=== PATIENT | male | born 1960 ===

== ENCOUNTER 2018-11-02 13:51 | Inpatient (IN) | payer MEDICARE, OTHER ==
[~2018-11-02 13:51] MED LIST: Iodixanol 320 MG/ML 200 ML BOTTLE IV ONE; Lidocaine 2% MPF (5 ml) Inj ONE
--- NOTE | 2018-11-02 13:59 | CP.PCM.PN ---
<Sara Soto - Last Filed: 11/02/18 14:17> Subjective - Date & Time of Evaluation Date of Evaluation: 11/02/18 Time of Evaluation: 13:58 - Subjective Subjective: CODE HEART This is a 58 year old male with PMHx of HTN, HLD, CAD s/p PCI 2009, 1 stent, 2017 - 1 MONTSERRAT in LAD with Dr. Santana, was to have LCx PCI outpatient (unclear if PCI was placed, and a former tobacco user. Patient has arrived from [place] as a CODE Heart, noted on EKG ST elevations V2 - V5. Patient was given ASA, Plavix, Heparin, Nitro, Morphine. Due to level of pain, patient unable to answer questions regarding onset, previous medical history, medication compliance or any recent illicit drug use. All information gained from prior admissions in EMR. Dr. Mai on site to perform cardiac catherization. <Chris Renae - Last Filed: 11/02/18 15:56> Objective - Medications Medications: Current Medications Acetylcysteine (Acetylcysteine 20%) 6 ml PO Q12H [facility] Stop: 11/04/18 04:01 Aspirin (Aspirin Chewable) 81 mg PO DAILY [facility] Clopidogrel Bisulfate (Plavix) 75 mg PO DAILY [facility] Enoxaparin Sodium (Lovenox) 40 mg SC DAILY [facility] Metoprolol Tartrate (Lopressor) 25 mg PO BID [facility] Rosuvastatin Calcium (Crestor) 40 mg PO HS [facility] Attending/Attestation - Attestation I have personally seen and examined this patient.: Yes I have fully participated in the care of the patient.: Yes I have reviewed all pertinent clinical information, including history, physical exam and plan: Yes Notes (Text): 11/02/18 15:53 Hospitalist Note: Reviewed the above and agree with the above note. The patient was brought by BLS to [place] [facility] where a CODE Heart was called and then transported to [facility]. Supposedly he has had history of CT in the past and in 2017 had at least one stent to the LAD. Patient was awake, however in pain. He did not want to answer questions due to pain. He was is visible chest pain when we saw and brought him to the field laboratory operator and we gave 4 of morphine for chest pain. His blood pressure was very elevated in the 180s systolic. Because he was extremely anxious and moving all of his limbs he was also given 1 of versed and fentanyl before the start of the cardiac cath. Chris Renae
[2018-11-02] MEDS ORDERED: Midazolam 2 MG/2 ML VIAL ONE (14:10)
[2018-11-02 14:16] VITALS: BMI 29.7
[2018-11-02] MEDS ORDERED: Amiodarone 150mg/3 ml vial ONE (14:29)
[2018-11-02] MEDS: Sodium Chloride 0.9% 1,000 ML IV SCH (15:45)
[2018-11-02 16:05] LABS: BASO % 0.1 % (0.0-2.0); HEMOGLOBIN 15.5 g/dL (12.0-18.0); LYMPH # 1.2 K/uL (1.0-4.3); LYMPH % 7.3 % (20.0-40.0); MEAN CELL VOLUME 93.8 fL (80.0-94.0); MEAN CORPUSCULAR HEMOGLOBIN 31.3 pg (27.0-31.0); MEAN CORPUSCULAR HGB CONC 33.3 g/dL (33.0-37.0); MEAN PLATELET VOLUME 8.1 fL (7.2-11.7); NEUT # 14.2 K/uL (1.8-7.0); NEUT % 86.6 % (50.0-75.0); PLATELET COUNT 230 K/uL (130-400); RBC 4.96 Mil/uL (4.40-5.90); RED CELL DISTRIBUTION WIDTH 14.2 % (11.5-14.5); WHITE BLOOD COUNT 16.5 K/uL (4.8-10.8)
--- NOTE | 2018-11-02 16:16 | CP.PCM.CON ---
History of Present Illness - History of Present Illness History of Present Illness: 58 year old male with PMHx of HTN, HLD, CAD s/p PCI 2009, 2016, current tobacco user. Patient has arrived from [place] as a CODE Heart, noted on EKG ST elevations V2 - V5. Patient was given ASA, Plavix, Heparin, Nitro, Morphine. Patient underwent MONTSERRAT LAD. denies any chest pain, s/p versed post op. Patient too drowsy, -Patient notes he was off plavix for a endoscopy at [place] (yesterday had endoscopy). Patient was walking his dog when he noted to have chest pain. -utox pending Pmx: gastritis, CAD, smoker Psug hx: PCI multiple allergies: NKDA -SH: (+)smoking Review of Systems - Review of Systems All systems: reviewed and no additional remarkable complaints except Review of Systems: as per HPI Past Patient History - Infectious Disease Hx of Infectious Diseases: None - Tetanus Immunizations Tetanus Immunization: Unknown - Past Medical History & Family History Past Medical History?: Yes - Past Social History Smoking Status: Current Some Days Smoker - CARDIAC Hx Hypercholesterolemia: Yes Hx Hypertension: Yes - PULMONARY Hx Asthma: Yes - NEUROLOGICAL Hx Neurological Disorder: Yes HX Cerebrovascular Accident: Yes - HEENT Hx HEENT Problems: No - RENAL Hx Chronic Kidney Disease: Yes Hx Kidney Stones: Yes - ENDOCRINE/METABOLIC Hx Endocrine Disorders: No - HEMATOLOGICAL/ONCOLOGICAL Hx Blood Disorders: No - INTEGUMENTARY Hx Dermatological Problems: No - MUSCULOSKELETAL/RHEUMATOLOGICAL Hx Arthritis: Yes - GASTROINTESTINAL Hx Gastrointestinal Disorders: Yes Hx Ulcer: Yes - GENITOURINARY/GYNECOLOGICAL Hx Genitourinary Disorders: No - PSYCHIATRIC Hx Anxiety: Yes Hx Depression: Yes - SURGICAL HISTORY Hx Surgeries: Yes Hx Angioplasty: Yes (x2) - ANESTHESIA Hx Anesthesia: Yes Hx Anesthesia Reactions: No Meds Allergies/Adverse Reactions: Allergies Allergy/AdvReac Type Severity Reaction Status Date / Time No Known Allergies Allergy Verified 11/02/18 12:27 - Medications Medications: Current Medications Acetylcysteine (Acetylcysteine 20%) 6 ml PO Q12H [facility] Stop: 11/04/18 04:01 Aspirin (Aspirin Chewable) 81 mg PO DAILY [facility] Clopidogrel Bisulfate (Plavix) 75 mg PO DAILY [facility] Enoxaparin Sodium (Lovenox) 40 mg SC DAILY [facility] Metoprolol Tartrate (Lopressor) 25 mg PO BID [facility] Rosuvastatin Calcium (Crestor) 40 mg PO HS [facility] Physical Exam - Head Exam Head Exam: ATRAUMATIC, NORMAL INSPECTION, NORMOCEPHALIC - Eye Exam Eye Exam: EOMI, Normal appearance - ENT Exam ENT Exam: Mucous Membranes Moist - Respiratory Exam Respiratory Exam: Clear to Auscultation Bilateral, NORMAL BREATHING PATTERN - Cardiovascular Exam Cardiovascular Exam: REGULAR RHYTHM, +S1, +S2 - GI/Abdominal Exam GI & Abdominal Exam: Normal Bowel Sounds, Soft. absent: Rebound, Tenderness - Extremities Exam Extremities exam: Positive for: normal inspection - Neurological Exam Neurological exam: Altered - Skin Skin Exam: Normal Color, Warm Results - Vital Signs Recent Vital Signs: Last Vital Signs Temp 97.4 F L 11/02/18 15:05 Pulse 77 11/02/18 16:02 Resp 12 11/02/18 16:02 BP 111/81 11/02/18 16:02 Pulse Ox 94 L 11/02/18 16:02 - Labs Result Diagrams: 11/02/18 16:01 11/02/18 16:01 Labs: Laboratory Results - last 24 hr 11/02/18 16:01 WBC 16.5 H RBC 4.96 Hgb 15.5 Hct 46.5 MCV 93.8 MCH 31.3 H MCHC 33.3 RDW 14.2 Plt Count 230 MPV 8.1 Neut % (Auto) 86.6 H Lymph % (Auto) 7.3 L Swisher % (Auto) 6.0 Eos % (Auto) 0.0 Baso % (Auto) 0.1 Neut # (Auto) 14.2 H Lymph # (Auto) 1.2 Swisher # (Auto) 1.0 H Eos # (Auto) 0.0 Baso # (Auto) 0.0 Assessment & Plan - Assessment and Plan (Free Text) Assessment: STEMI: LAD terirtory, s/p MONTSERRAT, obtain P2Y12, d/w Dr. hernandez, requested to continue plavix (posisble change to brillinta), continue to monitor EKG, trop and continue DAPT -h/o gastritis: continue to monitor, obtain endoscopy report (patient drowys and not able to provide any history of report or medical list), continue pepcid + maalox, carafate -CKD stage II: start oral mucomyst, continue IV fluid, avoid nephrotoxic drugs -Leukocytosis: CXR c/w infiltrates: will la cultuer, start abx, doxy + zosyn (possible aspiration during endoscopy), hold vanco in light of renal failure(plus IV contract use in cardiac cath) -dvt ppx heparin sq/SCD -pud ppx pepcid urine drug test pending -multiple diagnostic tests pending -nausea/vomitting: resolved with oral viscous lidocaine and maalox, will start to pepcid (protonix interaction with plavix) -continue to monitor closely in ICU. - Date & Time Date: 11/02/18 Time: 16:17
[2018-11-02 16:17] LABS: ALB/GLOB RATIO 1.4 (1.0-2.1); ALBUMIN 4.2 g/dL (3.5-5.0)
[2018-11-02 16:35] LABS: TROPONIN I 0.934 ng/mL (0.00-0.120)
[2018-11-02 16:41] LABS: BANDS 2 % (0-2); LYMPHOCYTE 8 % (20-40); MONOCYTE 6 % (0-10); NEUTROPHIL 84 % (50-75); PLATELET ESTIMATE NORMAL (NORMAL); TOTAL CELLS COUNTED 100
[2018-11-02 16:42] LABS: ANISOCYTOSIS SLIGHT; LARGE PLATELETS PRESENT; TOXIC GRANULATION PRESENT
--- NOTE | 2018-11-02 17:10 | RAD ---
HISTORY: post cath COMPARISON: None available. TECHNIQUE: Chest, one view. FINDINGS: Examination limited by habitus. LUNGS: Mild venous congestion. Bibasilar atelectasis/infiltrates. Please note that chest x-ray has limited sensitivity for the detection of pulmonary masses. PLEURA: No significant pleural effusion identified. No definite pneumothorax . CARDIOVASCULAR: Cardiomegaly. Atherosclerotic calcifications. OSSEOUS STRUCTURES: Degenerative changes. VISUALIZED UPPER ABDOMEN: Unremarkable. OTHER FINDINGS: None. IMPRESSION: Cardiomegaly. Mild venous congestion. Bibasilar atelectasis/infiltrates.
[2018-11-02 18:03] LABS: ABG ALLEN TEST POS; ARTERIAL BLOOD GAS HCO3 20.1 mmol/L (21-28); ARTERIAL BLOOD GAS O2 SAT 96.7 % (95-98); ARTERIAL BLOOD GAS PCO2 35 mm/Hg (35-45); ARTERIAL BLOOD GAS PH 7.34 (7.35-7.45); ARTERIAL BLOOD GAS PO2 80 mm/Hg (80-100)
[2018-11-02] MEDS ORDERED: Aluminum Hydroxide/Magnesium Hydroxide Susp (30 mL) PO ONE (18:12)
[2018-11-02 19:03] LABS: BARBITURATES, UR NEGATIVE (NEGATIVE); PHENCYCLIDINE, UR NEGATIVE (NEGATIVE)
[2018-11-02 19:08] LABS: BARBITURATES, UR NEGATIVE (NEGATIVE); BENZODIAZEPINES, UR POSITIVE (NEGATIVE); OPIATES, UR POSITIVE (NEGATIVE); PHENCYCLIDINE, UR NEGATIVE (NEGATIVE)
[2018-11-02 19:25] LABS: AMYLASE 77 U/L (30-110); LIPASE 293 U/L (23-300)
[2018-11-02] MEDS: Piperacillin/Tazobact 3.375 GM in Sodium Chloride 100 ML IVPB SCH (19:48)
--- NOTE | 2018-11-02 23:27 | CP.PCM.HP ---
Past Patient History - Infectious Disease Hx of Infectious Diseases: None - Tetanus Immunizations Tetanus Immunization: Unknown - Past Medical History & Family History Past Medical History?: Yes - Past Social History Smoking Status: Current Some Days Smoker - CARDIAC Hx Hypercholesterolemia: Yes Hx Hypertension: Yes - PULMONARY Hx Asthma: Yes - NEUROLOGICAL Hx Neurological Disorder: Yes HX Cerebrovascular Accident: Yes - HEENT Hx HEENT Problems: No - RENAL Hx Chronic Kidney Disease: Yes Hx Kidney Stones: Yes - ENDOCRINE/METABOLIC Hx Endocrine Disorders: No - HEMATOLOGICAL/ONCOLOGICAL Hx Blood Disorders: No - INTEGUMENTARY Hx Dermatological Problems: No - MUSCULOSKELETAL/RHEUMATOLOGICAL Hx Arthritis: Yes - GASTROINTESTINAL Hx Gastrointestinal Disorders: Yes Hx Ulcer: Yes - GENITOURINARY/GYNECOLOGICAL Hx Genitourinary Disorders: No - PSYCHIATRIC Hx Anxiety: Yes Hx Depression: Yes - SURGICAL HISTORY Hx Surgeries: Yes Hx Angioplasty: Yes (x2) - ANESTHESIA Hx Anesthesia: Yes Hx Anesthesia Reactions: No Meds Allergies/Adverse Reactions: Allergies Allergy/AdvReac Type Severity Reaction Status Date / Time No Known Allergies Allergy Verified 11/02/18 12:27 Physical Exam - Constitutional Appears: Well - Head Exam Head Exam: ATRAUMATIC, NORMAL INSPECTION, NORMOCEPHALIC - Eye Exam Eye Exam: EOMI, Normal appearance, PERRL Pupil Exam: NORMAL ACCOMODATION, PERRL - ENT Exam ENT Exam: Mucous Membranes Moist, Normal Exam - Neck Exam Neck exam: Positive for: Normal Inspection - Respiratory Exam Respiratory Exam: Decreased Breath Sounds - Cardiovascular Exam Cardiovascular Exam: REGULAR RHYTHM, +S1, +S2 - GI/Abdominal Exam GI & Abdominal Exam: Diminished Bowel Sounds, Soft - Rectal Exam Rectal Exam: Deferred - Neurological Exam Neurological exam: Oriented x3 Results - Vital Signs Recent Vital Signs: Last Vital Signs Temp 97.8 F 11/02/18 20:00 Pulse 92 H 11/02/18 22:45 Resp 13 11/02/18 22:45 BP 134/94 H 11/02/18 22:00 Pulse Ox 95 11/02/18 22:45 - Labs Result Diagrams: 11/02/18 16:01 11/02/18 16:01 Labs: Laboratory Results - last 24 hr 11/02/18 11/02/18 11/02/18 16:01 16:01 17:50 WBC 16.5 H RBC 4.96 Hgb 15.5 Hct 46.5 MCV 93.8 MCH 31.3 H MCHC 33.3 RDW 14.2 Plt Count 230 MPV 8.1 Neut % (Auto) 86.6 H Lymph % (Auto) 7.3 L Jerome % (Auto) 6.0 Eos % (Auto) 0.0 Baso % (Auto) 0.1 Neut # (Auto) 14.2 H Lymph # (Auto) 1.2 Jerome # (Auto) 1.0 H Eos # (Auto) 0.0 Baso # (Auto) 0.0 Neutrophils % (Manual) 84 H Band Neutrophils % 2 Lymphocytes % (Manual) 8 L Monocytes % (Manual) 6 Toxic Granulation Present Platelet Estimate Normal Large Platelets Present Anisocytosis (manual) Slight Puncture Site Rradial pCO2 35 pO2 80 HCO3 20.1 L ABG pH 7.34 L ABG Total CO2 20.0 L ABG O2 Saturation 96.7 ABG Base Excess -6.1 L Herman Test Pos ABG Potassium 4.4 A-a O2 Difference 76.0 Respiratory Index 1.0 Glucose 159 H Lactate 1.5 Liter Flow 2.0 FiO2 28.0 Sodium 138 136.0 Potassium 4.4 Chloride 102 106.0 Carbon Dioxide 20 L Anion Gap 21 H BUN 34 H Creatinine 1.6 H Est GFR ( Amer) 54 Est GFR (Non-Af Amer) 45 Random Glucose 138 H Lactic Acid Calcium 9.0 Phosphorus 2.2 L Magnesium 1.7 Total Bilirubin 0.7 AST 75 H D ALT 40 Alkaline Phosphatase 61 Troponin I 0.9340 H* Total Protein 7.3 Albumin 4.2 Globulin 3.1 Albumin/Globulin Ratio 1.4 Amylase Lipase Arterial Blood Potassium 4.4 Urine Opiates Screen Urine Methadone Screen Ur Barbiturates Screen Ur Phencyclidine Scrn Ur Amphetamines Screen U Benzodiazepines Scrn U Oth Cocaine Metabols U Cannabinoids Screen 11/02/18 11/02/18 11/02/18 18:41 18:41 19:17 WBC RBC Hgb Hct MCV MCH MCHC RDW Plt Count MPV Neut % (Auto) Lymph % (Auto) Jerome % (Auto) Eos % (Auto) Baso % (Auto) Neut # (Auto) Lymph # (Auto) Jerome # (Auto) Eos # (Auto) Baso # (Auto) Neutrophils % (Manual) Band Neutrophils % Lymphocytes % (Manual) Monocytes % (Manual) Toxic Granulation Platelet Estimate Large Platelets Anisocytosis (manual) Puncture Site pCO2 pO2 HCO3 ABG pH ABG Total CO2 ABG O2 Saturation ABG Base Excess Herman Test ABG Potassium A-a O2 Difference Respiratory Index Glucose Lactate Liter Flow FiO2 Sodium Potassium Chloride Carbon Dioxide Anion Gap BUN Creatinine Est GFR ( Amer) Est GFR (Non-Af Amer) Random Glucose Lactic Acid Calcium Phosphorus Magnesium Total Bilirubin AST ALT Alkaline Phosphatase Troponin I Total Protein Albumin Globulin Albumin/Globulin Ratio Amylase 77 Lipase 293 Arterial Blood Potassium Urine Opiates Screen Positive H Positive H Urine Methadone Screen Negative Negative Ur Barbiturates Screen Negative Negative Ur Phencyclidine Scrn Negative Negative Ur Amphetamines Screen Negative Negative U Benzodiazepines Scrn Positive Positive U Oth Cocaine Metabols Negative Negative U Cannabinoids Screen Positive H Positive H 11/02/18 11/02/18 22:49 22:49 WBC RBC Hgb Hct MCV MCH MCHC RDW Plt Count MPV Neut % (Auto) Lymph % (Auto) Jerome % (Auto) Eos % (Auto) Baso % (Auto) Neut # (Auto) Lymph # (Auto) Jerome # (Auto) Eos # (Auto) Baso # (Auto) Neutrophils % (Manual) Band Neutrophils % Lymphocytes % (Manual) Monocytes % (Manual) Toxic Granulation Platelet Estimate Large Platelets Anisocytosis (manual) Puncture Site pCO2 pO2 HCO3 ABG pH ABG Total CO2 ABG O2 Saturation ABG Base Excess Herman Test ABG Potassium A-a O2 Difference Respiratory Index Glucose Lactate Liter Flow FiO2 Sodium Potassium Chloride Carbon Dioxide Anion Gap BUN Creatinine Est GFR ( Amer) Est GFR (Non-Af Amer) Random Glucose Lactic Acid 2.1 Calcium Phosphorus Magnesium Total Bilirubin AST ALT Alkaline Phosphatase Troponin I 57.8000 H* Total Protein Albumin Globulin Albumin/Globulin Ratio Amylase Lipase Arterial Blood Potassium Urine Opiates Screen Urine Methadone Screen Ur Barbiturates Screen Ur Phencyclidine Scrn Ur Amphetamines Screen U Benzodiazepines Scrn U Oth Cocaine Metabols U Cannabinoids Screen
[2018-11-03] MEDS: Nitroglycerin 50mg in D5W 50 MG/250 ML BOTTLE IV SCH (02:10)
[2018-11-03] MEDS: Piperacillin/Tazobact 3.375 GM in Sodium Chloride 100 ML IVPB SCH ×3 (02:26→18:00)
[2018-11-03] MEDS: Acetylcysteine 20% Inhal Soln (4ml) PO SCH ×4 (04:36→19:12)
[2018-11-03 06:19] LABS: BASO # 0.1 K/uL (0.0-0.2); BASO % 0.4 % (0.0-2.0); HEMOGLOBIN 14.7 g/dL (12.0-18.0); LYMPH # 1.3 K/uL (1.0-4.3); LYMPH % 7.4 % (20.0-40.0); MEAN CELL VOLUME 93.3 fL (80.0-94.0); MEAN CORPUSCULAR HGB CONC 33.3 g/dL (33.0-37.0); MONO # 1.3 K/uL (0.0-0.8); MONO % 7.3 % (0.0-10.0); NEUT # 14.5 K/uL (1.8-7.0); NEUT % 84.9 % (50.0-75.0); PLATELET COUNT 229 K/uL (130-400); RBC 4.74 Mil/uL (4.40-5.90); RED CELL DISTRIBUTION WIDTH 14.1 % (11.5-14.5); WHITE BLOOD COUNT 17.2 K/uL (4.8-10.8)
[2018-11-03 06:30] LABS: ALB/GLOB RATIO 1.3 (1.0-2.1); ALBUMIN 4.3 g/dL (3.5-5.0)
[2018-11-03 06:44] LABS: TROPONIN I 57.5 ng/mL (0.00-0.120)
[2018-11-03] MEDS ORDERED: Alum-Mag Hydrox-Simethicone Susp (30 mL) PO PRN (08:31)
--- NOTE | 2018-11-03 08:40 | CP.PCM.PN ---
Subjective - Date & Time of Evaluation Date of Evaluation: 11/03/18 Time of Evaluation: 08:34 - Subjective Subjective: Patient continues to have episodes of vomitting, Utox (+)cannabis, trop high >50, over night started on IV nitro Objective - Vital Signs/Intake and Output Vital Signs (last 24 hours): Temp Pulse Resp BP Pulse Ox 97.9 F 99 H 12 139/95 H 97 11/03/18 04:00 11/03/18 06:08 11/03/18 06:08 11/03/18 06:08 11/03/18 06:08 Intake and Output: 11/03/18 11/03/18 06:59 18:59 Intake Total 1087.0 Output Total 900 Balance 187.0 - Medications Medications: Current Medications Acetylcysteine (Acetylcysteine 20%) 6 ml PO Q12H [facility] Stop: 11/04/18 04:01 Last Admin: 11/03/18 05:11 Dose: 6 ml Al Hydrox/Mg Hydrox/Simethicone (Maalox Plus 30 Ml) 30 ml PO Q6H PRN PRN Reason: Indigestion / Heartburn Aspirin (Aspirin Chewable) 81 mg PO DAILY [facility] Clopidogrel Bisulfate (Plavix) 75 mg PO DAILY [facility] Enoxaparin Sodium (Lovenox) 40 mg SC DAILY [facility] Sodium Chloride (Sodium Chloride 0.9%) 1,000 mls @ 50 mls/hr IV .Q20H [facility] Last Admin: 11/02/18 15:45 Dose: 50 mls/hr Piperacillin Sod/Tazobactam (Sod 3.375 gm/ Sodium Chloride) 100 mls @ 200 mls/hr IVPB Q8H [facility]; Protocol Last Admin: 11/03/18 02:26 Dose: 200 mls/hr Doxycycline Hyclate 100 mg/ (Sodium Chloride) 100 mls @ 100 mls/hr IVPB Q12H [facility]; Protocol Last Admin: 11/03/18 06:27 Dose: 100 mls/hr Nitroglycerin/Dextrose (Nitroglycerin 50 Mg/250 Ml D5w) 50 mg in 250 mls @ 1.5 mls/hr IV .Q24H [facility]; Protocol Last Titration: 11/03/18 05:00 Dose: 10 mcg/min, 3 mls/hr Metoprolol Tartrate (Lopressor) 25 mg PO BID [facility] Last Admin: 11/02/18 20:52 Dose: Not Given Ondansetron HCl (Zofran Inj) 4 mg IVP Q6H PRN PRN Reason: Nausea/Vomiting Last Admin: 11/02/18 22:55 Dose: 4 mg Rosuvastatin Calcium (Crestor) 40 mg PO HS [facility] Last Admin: 11/02/18 21:58 Dose: 40 mg - Labs Labs: 11/03/18 06:10 11/03/18 06:10 - Head Exam Head Exam: ATRAUMATIC, NORMAL INSPECTION, NORMOCEPHALIC - Eye Exam Eye Exam: EOMI Pupil Exam: PERRL - ENT Exam ENT Exam: Mucous Membranes Moist - Respiratory Exam Respiratory Exam: Clear to Ausculation Bilateral, NORMAL BREATHING PATTERN. absent: Rales, Rhonchi, Wheezes, Respiratory Distress, Stridor - Cardiovascular Exam Cardiovascular Exam: REGULAR RHYTHM, +S1, +S2 - GI/Abdominal Exam GI & Abdominal Exam: Soft, Normal Bowel Sounds. absent: Tenderness, Hypoactive Bowel Sounds - Back Exam Back Exam: NORMAL INSPECTION - Neurological Exam Neurological Exam: Alert, Awake, Oriented x3 - Skin Skin Exam: Normal Color, Warm Assessment and Plan - Assessment and Plan (Free Text) Assessment: -STEMI: LAD terirtory, s/p MONTSERRAT, pending P2Y12, continue DAPT asa + plavix, continue to monitor EKG, trop and continue DAPT -h/o gastritis: continue to monitor, obtain endoscopy report, continue pepcid + maalox, carafate -nausea vomitting: suspect cannabis hyperemesis syndrome: supportive therapy -CKD stage II: continue oral mucomyst, continue IV fluid, avoid nephrotoxic drugs -Leukocytosis: continue ABX, lactic normal -dvt ppx heparin sq/SCD -pud ppx pepcid Utox (+): opiates and cannbinoid -continue to monitor Patient remains hemodynamically stable
[2018-11-03 08:54] LABS: ANISOCYTOSIS SLIGHT; BANDS 1 % (0-2); LYMPHOCYTE 6 % (20-40); MONOCYTE 6 % (0-10); NEUTROPHIL 87 % (50-75); PLATELET ESTIMATE NORMAL (NORMAL); TOTAL CELLS COUNTED 100
[2018-11-03 08:55] LABS: LARGE PLATELETS PRESENT
--- NOTE | 2018-11-03 09:03 | CARDCATH ---
PROCEDURE DATE: 11/02/2018 INDICATIONS: Mr. Garcia is a 58-year-old male who presented to [facility] with complaint of chest pain, one hour prior to presentation. The patient had ST elevation in the inferior leads . He had prior history of stent in the LAD and stent done by Dr. Reddy Santana in 2017. The patient was transferred over emergently from [place] to [facility] due to having excruciating chest pains. PROCEDURE PERFORMED: Left heart catheterization. Selective left and right coronary angiogram. PTCA stenting of proximal LAD 100% atrial lead thrombosed stent with back at the proximal edge of the stent. It was a 3.5 x 15 mm drug-eluting stent in the proximal LAD and a 2.5 x 15 mm drug-eluting stent in the mid LAD. High-grade stenosis lesion reduction of 100% on 0% OBIE-3 flow. History of right femoral access . ANGIOGRAPHIC FINDINGS: Left main, large-sized vessel, bifurcates into left anterior descending and left circumflex coronary artery. Left circumflex is a large-sized vessel, has proximal inside the obtuse marginal branch with mild non-luminal irregularities. The LAD 100% occlusion with OBIE-3 flow, RCA also had a mid nonobstructive 55% stenosis, right dominant circulation, left ventricular ejection fraction was about 40% with anteroseptal hypokinesis noted. ____ intervention performed, XB 3.5 guiding catheter was used to engage the left coronary system. A Whisper wire was used across the occluded thrombosed stent, 2-0 balloon was used to pre-dilatation which restored the LAD system. The segment of the LAD, proximal to the prior stent had ruptured plaque and in it there was some in-stent restenosis noted and the mid segment had a high-grade 95% stenosis. The proximal segment was fitted with a 3.5 x 15 Jhonny drug-eluting stent. The mid in-stent restenosis was treated with balloon angioplasty and the mid LAD lesion stenosis was treated with a 2.5 x 15 mm Jhonny drug-eluting stent. Final angiogram does show lesion reduction down to 0% OBIE-3 flow. IMPRESSION: 1. Successful angioplasty and stenting of 100% thrombosed left anterior descending stent with drug-eluting stent. 2. Mild left ventricular systolic dysfunction. 3. Mildly elevated . RECOMMENDATIONS: 1. The patient is to be monitored in the ICU for 24 hours. 2. Keep the patient on aspirin and Plavix for 1 year. 3. Guideline-directed therapy for CAD including beta-blockers, ANEESH inhibitors, statins. 4. Monitor the functions closely. Ramirez Mai MD
[2018-11-03] MEDS: Enoxaparin 40 mg Syringe SC SCH (09:50)
--- NOTE | 2018-11-03 11:15 | CP.PCM.PN ---
Subjective - Date & Time of Evaluation Date of Evaluation: 11/03/18 - Subjective Subjective: no c/o vomiting, no diarrhea, no fever Objective - Vital Signs/Intake and Output Vital Signs (last 24 hours): Temp Pulse Resp BP Pulse Ox 98 F 97 H 11 L 134/93 H 98 11/03/18 08:00 11/03/18 10:08 11/03/18 10:08 11/03/18 10:08 11/03/18 10:08 Intake and Output: 11/03/18 11/03/18 06:59 18:59 Intake Total 1087.0 392 Output Total 900 200 Balance 187.0 192 - Medications Medications: Current Medications Acetylcysteine (Acetylcysteine 20%) 6 ml PO Q12H [facility] Stop: 11/04/18 04:01 Last Admin: 11/03/18 05:11 Dose: 6 ml Al Hydrox/Mg Hydrox/Simethicone (Maalox Plus 30 Ml) 30 ml PO Q6H PRN PRN Reason: Indigestion / Heartburn Last Admin: 11/03/18 08:58 Dose: 30 ml Aspirin (Aspirin Chewable) 81 mg PO DAILY [facility] Last Admin: 11/03/18 09:50 Dose: 81 mg Clopidogrel Bisulfate (Plavix) 75 mg PO DAILY [facility] Last Admin: 11/03/18 09:50 Dose: 75 mg Enoxaparin Sodium (Lovenox) 40 mg SC DAILY [facility] Last Admin: 11/03/18 09:50 Dose: 40 mg Sodium Chloride (Sodium Chloride 0.9%) 1,000 mls @ 50 mls/hr IV .Q20H [facility] Last Admin: 11/02/18 15:45 Dose: 50 mls/hr Piperacillin Sod/Tazobactam (Sod 3.375 gm/ Sodium Chloride) 100 mls @ 200 mls/hr IVPB Q8H [facility]; Protocol Last Admin: 11/03/18 02:26 Dose: 200 mls/hr Doxycycline Hyclate 100 mg/ (Sodium Chloride) 100 mls @ 100 mls/hr IVPB Q12H [facility]; Protocol Last Admin: 11/03/18 06:27 Dose: 100 mls/hr Nitroglycerin/Dextrose (Nitroglycerin 50 Mg/250 Ml D5w) 50 mg in 250 mls @ 1.5 mls/hr IV .Q24H [facility]; Protocol Last Titration: 11/03/18 05:00 Dose: 10 mcg/min, 3 mls/hr Metoprolol Tartrate (Lopressor) 25 mg PO BID [facility] Last Admin: 11/03/18 09:50 Dose: 25 mg Ondansetron HCl (Zofran Inj) 4 mg IVP Q6H PRN PRN Reason: Nausea/Vomiting Last Admin: 11/02/18 22:55 Dose: 4 mg Rosuvastatin Calcium (Crestor) 40 mg PO HS [facility] Last Admin: 11/02/18 21:58 Dose: 40 mg - Labs Labs: 11/03/18 06:10 11/03/18 06:10 - Constitutional Appears: Well - Head Exam Head Exam: ATRAUMATIC, NORMAL INSPECTION, NORMOCEPHALIC - Eye Exam Eye Exam: EOMI, Normal appearance, PERRL Pupil Exam: NORMAL ACCOMODATION, PERRL - ENT Exam ENT Exam: Mucous Membranes Moist, Normal Exam - Neck Exam Neck Exam: Full ROM, Normal Inspection. absent: Lymphadenopathy - Respiratory Exam Respiratory Exam: Decreased Breath Sounds - Cardiovascular Exam Cardiovascular Exam: REGULAR RHYTHM, +S1, +S2 - GI/Abdominal Exam GI & Abdominal Exam: Soft, Diminished Bowel Sounds - Rectal Exam Rectal Exam: Deferred - Neurological Exam Neurological Exam: Oriented x3 Assessment and Plan (1) Chest pain Status: Acute (2) Coronary artery disease Status: Acute (3) Gastritis Status: Acute (4) Hyperlipidemia Status: Acute (5) Hypertension Status: Acute (6) NSTEMI (non-ST elevated myocardial infarction) Status: Acute (7) STEMI (ST elevation myocardial infarction) Status: Acute - Assessment and Plan (Free Text) Plan: WBC 17.2 BUN 33 Creatinine 1.6 Glucose 150 acetylcysteine MiraLAX Aspirin Plavix Lovenox Piperacillin Doxycycline Nitroglycerin Lopressor Zofran Crestor Moderate to high complexity of care. Plan of care discussed with patient &/or family & staff. Medications reviewed and reconciled. Labs reviewed. Vitals reviewed
[2018-11-03] MEDS: Sodium Chloride 0.9% 1,000 ML IV SCH (17:09)
--- NOTE | 2018-11-03 18:25 | CP.PCM.CON ---
History of Present Illness - History of Present Illness History of Present Illness: dictated Past Patient History - Infectious Disease Hx of Infectious Diseases: None - Tetanus Immunizations Tetanus Immunization: Unknown - Past Medical History & Family History Past Medical History?: Yes - Past Social History Smoking Status: Current Some Days Smoker - CARDIAC Hx Hypercholesterolemia: Yes Hx Hypertension: Yes - PULMONARY Hx Asthma: Yes - NEUROLOGICAL Hx Neurological Disorder: Yes HX Cerebrovascular Accident: Yes - HEENT Hx HEENT Problems: No - RENAL Hx Chronic Kidney Disease: Yes Hx Kidney Stones: Yes - ENDOCRINE/METABOLIC Hx Endocrine Disorders: No - HEMATOLOGICAL/ONCOLOGICAL Hx Blood Disorders: No - INTEGUMENTARY Hx Dermatological Problems: No - MUSCULOSKELETAL/RHEUMATOLOGICAL Hx Arthritis: Yes - GASTROINTESTINAL Hx Gastrointestinal Disorders: Yes Hx Ulcer: Yes - GENITOURINARY/GYNECOLOGICAL Hx Genitourinary Disorders: No - PSYCHIATRIC Hx Anxiety: Yes Hx Depression: Yes - SURGICAL HISTORY Hx Surgeries: Yes Hx Angioplasty: Yes (x2) - ANESTHESIA Hx Anesthesia: Yes Hx Anesthesia Reactions: No Meds Allergies/Adverse Reactions: Allergies Allergy/AdvReac Type Severity Reaction Status Date / Time No Known Allergies Allergy Verified 11/02/18 12:27 - Medications Medications: Current Medications Acetylcysteine (Acetylcysteine 20%) 6 ml PO Q12H [facility] Stop: 11/04/18 04:01 Last Admin: 11/03/18 05:11 Dose: 6 ml Al Hydrox/Mg Hydrox/Simethicone (Maalox Plus 30 Ml) 30 ml PO Q6H PRN PRN Reason: Indigestion / Heartburn Last Admin: 11/03/18 08:58 Dose: 30 ml Aspirin (Aspirin Chewable) 81 mg PO DAILY [facility] Last Admin: 11/03/18 09:50 Dose: 81 mg Clopidogrel Bisulfate (Plavix) 75 mg PO DAILY [facility] Last Admin: 11/03/18 09:50 Dose: 75 mg Enoxaparin Sodium (Lovenox) 40 mg SC DAILY [facility] Last Admin: 11/03/18 09:50 Dose: 40 mg Sodium Chloride (Sodium Chloride 0.9%) 1,000 mls @ 50 mls/hr IV .Q20H [facility] Last Admin: 11/03/18 17:09 Dose: Not Given Piperacillin Sod/Tazobactam (Sod 3.375 gm/ Sodium Chloride) 100 mls @ 200 mls/hr IVPB Q8H [facility]; Protocol Last Admin: 11/03/18 11:29 Dose: 200 mls/hr Doxycycline Hyclate 100 mg/ (Sodium Chloride) 100 mls @ 100 mls/hr IVPB Q12H [facility]; Protocol Last Admin: 11/03/18 06:27 Dose: 100 mls/hr Nitroglycerin/Dextrose (Nitroglycerin 50 Mg/250 Ml D5w) 50 mg in 250 mls @ 1.5 mls/hr IV .Q24H [facility]; Protocol Last Titration: 11/03/18 05:00 Dose: 10 mcg/min, 3 mls/hr Metoprolol Tartrate (Lopressor) 25 mg PO BID [facility] Last Admin: 11/03/18 17:09 Dose: 25 mg Ondansetron HCl (Zofran Inj) 4 mg IVP Q6H PRN PRN Reason: Nausea/Vomiting Last Admin: 11/02/18 22:55 Dose: 4 mg Rosuvastatin Calcium (Crestor) 40 mg PO HS [facility] Last Admin: 11/02/18 21:58 Dose: 40 mg Results - Vital Signs Recent Vital Signs: Last Vital Signs Temp 98.6 F 11/03/18 16:00 Pulse 86 11/03/18 17:08 Resp 14 11/03/18 17:08 BP 129/86 11/03/18 17:09 Pulse Ox 98 11/03/18 17:08 - Labs Result Diagrams: 11/03/18 06:10 11/03/18 06:10 Labs: Laboratory Results - last 24 hr 11/02/18 11/02/18 11/02/18 18:41 18:41 19:17 WBC RBC Hgb Hct MCV MCH MCHC RDW Plt Count MPV Neut % (Auto) Lymph % (Auto) [place] % (Auto) Eos % (Auto) Baso % (Auto) Neut # (Auto) Lymph # (Auto) [place] # (Auto) Eos # (Auto) Baso # (Auto) Neutrophils % (Manual) Band Neutrophils % Lymphocytes % (Manual) Monocytes % (Manual) Platelet Estimate Large Platelets Anisocytosis (manual) Plt P2Y12 React Units Sodium Potassium Chloride Carbon Dioxide Anion Gap BUN Creatinine Est GFR ( Amer) Est GFR (Non-Af Amer) Random Glucose Lactic Acid Calcium Phosphorus Magnesium Total Bilirubin AST ALT Alkaline Phosphatase Troponin I Total Protein Albumin Globulin Albumin/Globulin Ratio Amylase 77 Lipase 293 Urine Opiates Screen Positive H Positive H Urine Methadone Screen Negative Negative Ur Barbiturates Screen Negative Negative Ur Phencyclidine Scrn Negative Negative Ur Amphetamines Screen Negative Negative U Benzodiazepines Scrn Positive Positive U Oth Cocaine Metabols Negative Negative U Cannabinoids Screen Positive H Positive H 11/02/18 11/02/18 11/03/18 22:49 22:49 06:10 WBC 17.2 H RBC 4.74 Hgb 14.7 Hct 44.2 MCV 93.3 MCH 31.0 MCHC 33.3 RDW 14.1 Plt Count 229 MPV 8.0 Neut % (Auto) 84.9 H Lymph % (Auto) 7.4 L [place] % (Auto) 7.3 Eos % (Auto) 0.0 Baso % (Auto) 0.4 Neut # (Auto) 14.5 H Lymph # (Auto) 1.3 [place] # (Auto) 1.3 H Eos # (Auto) 0.0 Baso # (Auto) 0.1 Neutrophils % (Manual) 87 H Band Neutrophils % 1 Lymphocytes % (Manual) 6 L Monocytes % (Manual) 6 Platelet Estimate Normal Large Platelets Present Anisocytosis (manual) Slight Plt P2Y12 React Units Sodium Potassium Chloride Carbon Dioxide Anion Gap BUN Creatinine Est GFR ( Amer) Est GFR (Non-Af Amer) Random Glucose Lactic Acid 2.1 Calcium Phosphorus Magnesium Total Bilirubin AST ALT Alkaline Phosphatase Troponin I 57.8000 H* Total Protein Albumin Globulin Albumin/Globulin Ratio Amylase Lipase Urine Opiates Screen Urine Methadone Screen Ur Barbiturates Screen Ur Phencyclidine Scrn Ur Amphetamines Screen U Benzodiazepines Scrn U Oth Cocaine Metabols U Cannabinoids Screen 11/03/18 11/03/18 11/03/18 06:10 06:10 08:35 WBC RBC Hgb Hct MCV MCH MCHC RDW Plt Count MPV Neut % (Auto) Lymph % (Auto) [place] % (Auto) Eos % (Auto) Baso % (Auto) Neut # (Auto) Lymph # (Auto) [place] # (Auto) Eos # (Auto) Baso # (Auto) Neutrophils % (Manual) Band Neutrophils % Lymphocytes % (Manual) Monocytes % (Manual) Platelet Estimate Large Platelets Anisocytosis (manual) Plt P2Y12 React Units 211 Sodium 136 Potassium 4.5 Chloride 107 Carbon Dioxide 20 L Anion Gap 14 BUN 33 H Creatinine 1.6 H Est GFR ( Amer) 54 Est GFR (Non-Af Amer) 45 Random Glucose 150 H Lactic Acid Calcium 9.0 Phosphorus 3.4 Magnesium 1.9 Total Bilirubin 1.0 AST 308 H D ALT 51 Alkaline Phosphatase 49 Troponin I 57.5000 H* Total Protein 7.5 Albumin 4.3 Globulin 3.2 Albumin/Globulin Ratio 1.3 Amylase 94 Lipase 49 Urine Opiates Screen Urine Methadone Screen Ur Barbiturates Screen Ur Phencyclidine Scrn Ur Amphetamines Screen U Benzodiazepines Scrn U Oth Cocaine Metabols U Cannabinoids Screen 11/03/18 09:35 WBC RBC Hgb Hct MCV MCH MCHC RDW Plt Count MPV Neut % (Auto) Lymph % (Auto) [place] % (Auto) Eos % (Auto) Baso % (Auto) Neut # (Auto) Lymph # (Auto) [place] # (Auto) Eos # (Auto) Baso # (Auto) Neutrophils % (Manual) Band Neutrophils % Lymphocytes % (Manual) Monocytes % (Manual) Platelet Estimate Large Platelets Anisocytosis (manual) Plt P2Y12 React Units Sodium Potassium Chloride Carbon Dioxide Anion Gap BUN Creatinine Est GFR ( Amer) Est GFR (Non-Af Amer) Random Glucose Lactic Acid 1.1 Calcium Phosphorus Magnesium Total Bilirubin AST ALT Alkaline Phosphatase Troponin I Total Protein Albumin Globulin Albumin/Globulin Ratio Amylase Lipase Urine Opiates Screen Urine Methadone Screen Ur Barbiturates Screen Ur Phencyclidine Scrn Ur Amphetamines Screen U Benzodiazepines Scrn U Oth Cocaine Metabols U Cannabinoids Screen
[2018-11-04] MEDS: Nitroglycerin 50mg in D5W 50 MG/250 ML BOTTLE IV SCH (02:00)
[2018-11-04] MEDS: Piperacillin/Tazobact 3.375 GM in Sodium Chloride 100 ML IVPB SCH ×3 (02:32→18:05)
[2018-11-04] MEDS: Acetylcysteine 20% Inhal Soln (4ml) PO SCH (04:00)
[2018-11-04 06:27] LABS: BASO % 0.3 % (0.0-2.0); EOS % 0.1 % (0.0-4.0); HEMOGLOBIN 13.8 g/dL (12.0-18.0); LYMPH # 1.8 K/uL (1.0-4.3); LYMPH % 14.5 % (20.0-40.0); MEAN CELL VOLUME 93.4 fL (80.0-94.0); MEAN CORPUSCULAR HEMOGLOBIN 31.2 pg (27.0-31.0); MEAN CORPUSCULAR HGB CONC 33.4 g/dL (33.0-37.0); MEAN PLATELET VOLUME 8.1 fL (7.2-11.7); MONO # 1.3 K/uL (0.0-0.8); MONO % 10.2 % (0.0-10.0); NEUT # 9.5 K/uL (1.8-7.0); NEUT % 74.9 % (50.0-75.0); NRBC % 0.1 % (0.0-2.0); RBC 4.44 Mil/uL (4.40-5.90); RED CELL DISTRIBUTION WIDTH 14.3 % (11.5-14.5); WHITE BLOOD COUNT 12.7 K/uL (4.8-10.8)
[2018-11-04 06:39] LABS: ALB/GLOB RATIO 1.3 (1.0-2.1); ALBUMIN 3.6 g/dL (3.5-5.0); CALCIUM 8.4 mg/dl (8.6-10.4)
--- NOTE | 2018-11-04 07:40 | CON ---
DATE: 11/03/2018 INFECTIOUS DISEASE CONSULTATION REQUESTED BY: Bisi Lancaster MD HISTORY OF PRESENT ILLNESS: This patient is a 58-year-old male. He says he is a and he follows [facility]. He has a history of hypertension, hyperlipidemia, coronary artery disease. He has had four stents. He told me in 2016 he got two and other two stents were in 2010. He is a tobacco smoker. He was brought from [facility] as a code alert and with ST elevations, and they were treating him for code heart. The patient underwent more stents yesterday morning here. He also had some vomiting. At this point, he is very alert and he tells me his story. He says that on Sunday he saw his primary doctor who is in [facility] for the clearance. He says he received a shot for zoster, and he was doing fine. On Sunday, he went again for physical therapy. On Sunday, he had upper and lower endoscopy done. It was done at [facility]. Next day morning, he got up and without eating anything, he says he was walking his dog when he noted to have chest pain. Then, he was brought to the hospital. He denies any pain. He was off Plavix because of the endoscopy which was to be done and noted chest pain and ended up with a cardiac code alert. At this point, on his urine drug screen, the toxicology has revealed opiates are positive and cannabinoids are positive. That was reported twice. It looks like same report was put in twice, opiates and cannabinoids. So, he did have cannabinoids and he did say he vomited yesterday. He says he suffers from gastritis. He is a smoker and has coronary artery disease, has had four stents in the past. He was taken to the cardiac minilab operator yesterday, and he did get more stents as far as we know. Nurse says he has seven stents that is what I heard from her, but I have to check the nos. ALLERGIES: HE IS NOT ALLERGIC TO ANY MEDICINE. SOCIAL HISTORY: Positive for smoking which should also use for cannabis even though he flatly denied when I asked him he has any drug addiction. PAST MEDICAL HISTORY: Denies any infections but he goes to [facility] for his primary [facility]. REVIEW OF SYSTEMS: CARDIAC HISTORY: Significant for hypercholesterolemia, hypertension. RESPIRATORY: Lung toure, he is on an inhaler. He has a history of asthma. NEUROLOGIC: He had a CVA in the past and neurological disorders. HEENT: Denies any ears, nose, throat problems. RENAL: He has kidney disease with chronic kidney disease and kidney stones. ENDOCRINE: He denies any diabetes. No blood disorders. DERMATOLOGIC: No skin disorders. History of arthritis is positive. GASTROINTESTINAL: History of gastritis and ulcers is positive, and he is getting colonoscopy done every five years, maybe has something in the colon too. GENITOURINARY: Negative. PSYCHIATRIC: Psych tuore, he has a history of anxiety and depression. SURGICAL HISTORY: Significant for history of surgeries and history of angioplasty. ALLERGIES: He has no known allergies. MEDICATIONS: He is started on acetylcysteine, Maalox four doses were ordered I think because of the kidney issues. He is on Maalox, aspirin, Plavix, doxycycline, Lovenox, Lopressor, nitroglycerin, Zofran, piperacillin and on Crestor, and IV fluids were not given. He did have cannabis, and he continued to have episode of vomiting yesterday. PHYSICAL EXAMINATION: HEENT: Head is atraumatic, normocephalic. Pupils are reacting to light. GENERAL: He is awake and alert. He appears little anxious. He does say he has a history of depression also. NECK: Supple. JVP is flat. LUNGS: Clear to auscultation. No crackles or rales. I heard no wheezing, no rhonchi. HEART: S1 and S2 are regular. No murmurs appreciated. ABDOMEN: Soft, nontender. No guarding, no rigidity present. EXTREMITIES: Have no edema, clubbing or cyanosis. At this time, he is status post upper and lower endoscopy as well as cardiac catheterization and stent placements. LABORATORY DATA: Labs show that his white count was 16.5 yesterday, today it has increased to 17.2. Neutrophils are 84.9. There is only one band. Lymphs are 6. Sodium is 136, potassium 4.5, chlorides are 107, CO2 is 20, BUN is 33, creatinine is 1.6. His troponin I is . He had an urgent cardiac cath. His chest x-ray was done when he came in on 11/02/2018 which shows cardiomegaly, mild venous congestion, bibasilar atelectasis or infiltrates. ASSESSMENT AND PLAN: He had been vomiting yesterday because of I think could be related to the cannabis that he was taking. At this time, he is on Zosyn which will cover for aspiration and doxycycline which will cover methicillin-resistant Staphylococcus aureus because he has had procedures. I would leave both the antibiotics on, but it could be just reactive increased white blood cells to chest pain. If it comes down, we will discontinue doxycycline tomorrow and will continue Zosyn and we will follow. There are no cultures sent as such, so we will order them. This should be sure but the patient is already on several cultures done yesterday, so we will follow those ordered so if they are done, we will follow those. We will repeat the labs tomorrow. Shaniqua Isaacs MD
[2018-11-04] MEDS: Sodium Chloride 0.9% 1,000 ML IV SCH (08:24)
--- NOTE | 2018-11-04 08:49 | CP.CCUPN ---
CCU Subjective - Physician Review Subjective (Free Text): 11/04/18 08:[address] CAROLINE HOPPER PGY1 Pt seen and examined at bedside this am. He is up, eating breakfast, denying complaints, asking to go home. He is denying 12 point ROS CCU Objective - Vital Signs / Intake & Output Vital Signs (Last 4 hours): Vital Signs Temp Pulse Resp BP Pulse Ox 11/04/18 08:08 96 H 11 L 121/83 97 11/04/18 08:00 98.3 F 112 H 27 H 96 11/04/18 07:08 80 13 133/62 96 11/04/18 07:00 76 13 99 11/04/18 06:08 83 11 L 114/37 L 98 11/04/18 06:00 90 13 98 11/04/18 05:08 75 15 111/34 L 99 11/04/18 05:00 73 14 99 Intake and Output (Last 8hrs): Intake & Output 11/03/18 11/04/18 11/04/18 22:59 06:59 14:59 Intake Total 738 250 100 Output Total 620 350 Balance 118 -100 100 Weight 85.275 kg Intake: Intake, IV Amount 318 50 100 Right Antecubital 300 50 100 Right Hand 18 Oral 420 200 0 Output: Urine 620 350 Urine, Voided 620 350 Other: # Voids Urine, Voided 0 # Bowel Movements 0 0 0 - Physical Exam Head: Positive for: Atraumatic, Normocephalic Pupils: Positive for: PERRL Extroacular Muscles: Positive for: EOMI Conjunctiva: Positive for: Normal Mouth: Positive for: Moist Mucous Membranes Respiratory/Chest: Positive for: Clear to Auscultation, Good Air Exchange Cardiovascular: Positive for: Normal S1, S2, Tachycardic Abdomen: Positive for: Tenderness, Normal Bowel Sounds Upper Extremity: Positive for: Normal Inspection Lower Extremity: Positive for: Normal Inspection. Negative for: Edema Neurological: Positive for: CN II-XII Intact, Speech Normal Skin: Positive for: Warm, Other (R femoral dressing in place. No hematoma noted) Psychiatric: Positive for: Alert, Oriented x 3 - Medications Active Medications: Active Medications Generic Name Dose Route Start Last Admin Trade Name Freq PRN Reason Stop Dose Admin Al Hydrox/Mg Hydrox/Simethicone 30 ml 11/03/18 08:31 11/03/18 08:58 Maalox Plus 30 Ml PO 30 ml Q6H PRN Administration Indigestion / Heartburn Aspirin 81 mg 11/03/18 10:00 11/03/18 09:50 Aspirin Chewable PO 81 mg DAILY [facility] Administration Clopidogrel Bisulfate 75 mg 11/03/18 10:00 11/03/18 09:50 Plavix PO 75 mg DAILY [facility] Administration Enoxaparin Sodium 40 mg 11/03/18 10:00 11/03/18 09:50 Lovenox SC 40 mg DAILY [facility] Administration Sodium Chloride 1,000 mls @ 50 mls/hr 11/02/18 16:30 11/04/18 08:24 Sodium Chloride 0.9% IV Not Given .Q20H [facility] Piperacillin Sod/Tazobactam 100 mls @ 200 mls/hr 11/02/18 19:00 11/04/18 02:32 Sod 3.375 gm/ Sodium Chloride IVPB 200 mls/hr Q8H [facility] Administration Protocol Doxycycline Hyclate 100 mg/ 100 mls @ 100 mls/hr 11/02/18 19:00 11/04/18 06:03 Sodium Chloride IVPB 100 mls/hr Q12H [facility] Administration Protocol Nitroglycerin/Dextrose 50 mg in 250 mls @ 1.5 mls/hr 11/03/18 02:00 11/04/18 02:00 Nitroglycerin 50 Mg/250 Ml D5w IV Not Given .Q24H [facility] Protocol 5 MCG/MIN Metoprolol Tartrate 25 mg 11/02/18 18:00 11/03/18 17:09 Lopressor PO 25 mg BID [facility] Administration Ondansetron HCl 4 mg 11/02/18 22:45 11/02/18 22:55 Zofran Inj IVP 4 mg Q6H PRN Administration Nausea/Vomiting Rosuvastatin Calcium 40 mg 11/02/18 22:00 11/03/18 22:09 Crestor PO 40 mg HS [facility] Administration - Patient Studies Lab Studies: Microbiology Studies 11/02/18 18:41 MRSA Culture (Admit) - Final Nose MRSA NOT DETECTED Lab Studies 11/04/18 11/04/18 11/03/18 Range/Units 06:17 06:07 09:35 WBC 12.7 H (4.8-10.8) K/uL RBC 4.44 (4.40-5.90) Mil/uL Hgb 13.8 (12.0-18.0) g/dL Hct 41.5 (35.0-51.0) % MCV 93.4 (80.0-94.0) fL MCH 31.2 H (27.0-31.0) pg MCHC 33.4 (33.0-37.0) g/dL RDW 14.3 (11.5-14.5) % Plt Count 199 (130-400) K/uL MPV 8.1 (7.2-11.7) fL Neut % (Auto) 74.9 (50.0-75.0) % Lymph % (Auto) 14.5 L (20.0-40.0) % [place] % (Auto) 10.2 H (0.0-10.0) % Eos % (Auto) 0.1 (0.0-4.0) % Baso % (Auto) 0.3 (0.0-2.0) % Neut # (Auto) 9.5 H (1.8-7.0) K/uL Lymph # (Auto) 1.8 (1.0-4.3) K/uL [place] # (Auto) 1.3 H (0.0-0.8) K/uL Eos # (Auto) 0.0 (0.0-0.7) K/uL Baso # (Auto) 0.0 (0.0-0.2) K/uL Neutrophils % (Manual) (50-75) % Band Neutrophils % (0-2) % Lymphocytes % (Manual) (20-40) % Monocytes % (Manual) (0-10) % Platelet Estimate (NORMAL) Large Platelets Anisocytosis (manual) Plt P2Y12 React Units (194-418) PRU Sodium 138 (132-148) mmol/L Potassium 4.6 (3.6-5.2) mmol/L Chloride 107 (98-107) mmol/L Carbon Dioxide 22 (22-30) mmol/L Anion Gap 13 (10-20) BUN 22 H (9-20) mg/dL Creatinine 1.6 H (0.8-1.5) mg/dL Est GFR ( Amer) 54 Est GFR (Non-Af Amer) 45 Random Glucose 105 D (75-110) mg/dL Lactic Acid 1.1 (0.7-2.1) mmol/L Calcium 8.4 L (8.6-10.4) mg/dl Total Bilirubin 0.8 (0.2-1.3) mg/dL AST 179 H D (17-59) U/L ALT 45 (21-72) U/L Alkaline Phosphatase 50 (38-126) U/L Troponin I (0.00-0.120) ng/mL Total Protein 6.3 (6.3-8.3) g/dL Albumin 3.6 (3.5-5.0) g/dL Globulin 2.7 (2.2-3.9) gm/dL Albumin/Globulin Ratio 1.3 (1.0-2.1) Amylase (30-110) U/L Lipase (23-300) U/L 11/03/18 11/03/18 11/03/18 Range/Units 08:35 06:10 06:10 WBC (4.8-10.8) K/uL RBC (4.40-5.90) Mil/uL Hgb (12.0-18.0) g/dL Hct (35.0-51.0) % MCV (80.0-94.0) fL MCH (27.0-31.0) pg MCHC (33.0-37.0) g/dL RDW (11.5-14.5) % Plt Count (130-400) K/uL MPV (7.2-11.7) fL Neut % (Auto) (50.0-75.0) % Lymph % (Auto) (20.0-40.0) % [place] % (Auto) (0.0-10.0) % Eos % (Auto) (0.0-4.0) % Baso % (Auto) (0.0-2.0) % Neut # (Auto) (1.8-7.0) K/uL Lymph # (Auto) (1.0-4.3) K/uL [place] # (Auto) (0.0-0.8) K/uL Eos # (Auto) (0.0-0.7) K/uL Baso # (Auto) (0.0-0.2) K/uL Neutrophils % (Manual) 87 H (50-75) % Band Neutrophils % 1 (0-2) % Lymphocytes % (Manual) 6 L (20-40) % Monocytes % (Manual) 6 (0-10) % Platelet Estimate Normal (NORMAL) Large Platelets Present Anisocytosis (manual) Slight Plt P2Y12 React Units 211 (194-418) PRU Sodium (132-148) mmol/L Potassium (3.6-5.2) mmol/L Chloride (98-107) mmol/L Carbon Dioxide (22-30) mmol/L Anion Gap (10-20) BUN (9-20) mg/dL Creatinine (0.8-1.5) mg/dL Est GFR ( Amer) Est GFR (Non-Af Amer) Random Glucose (75-110) mg/dL Lactic Acid (0.7-2.1) mmol/L Calcium (8.6-10.4) mg/dl Total Bilirubin (0.2-1.3) mg/dL AST (17-59) U/L ALT (21-72) U/L Alkaline Phosphatase (38-126) U/L Troponin I 57.5000 H* (0.00-0.120) ng/mL Total Protein (6.3-8.3) g/dL Albumin (3.5-5.0) g/dL Globulin (2.2-3.9) gm/dL Albumin/Globulin Ratio (1.0-2.1) Amylase 94 (30-110) U/L Lipase 49 (23-300) U/L Laboratory Results - last 24 hr 11/03/18 11/03/18 11/03/18 06:10 06:10 08:35 WBC RBC Hgb Hct MCV MCH MCHC RDW Plt Count MPV Neut % (Auto) Lymph % (Auto) [place] % (Auto) Eos % (Auto) Baso % (Auto) Neut # (Auto) Lymph # (Auto) [place] # (Auto) Eos # (Auto) Baso # (Auto) Neutrophils % (Manual) 87 H Band Neutrophils % 1 Lymphocytes % (Manual) 6 L Monocytes % (Manual) 6 Platelet Estimate Normal Large Platelets Present Anisocytosis (manual) Slight Plt P2Y12 React Units 211 Sodium Potassium Chloride Carbon Dioxide Anion Gap BUN Creatinine Est GFR ( Amer) Est GFR (Non-Af Amer) Random Glucose Lactic Acid Calcium Total Bilirubin AST ALT Alkaline Phosphatase Troponin I 57.5000 H* Total Protein Albumin Globulin Albumin/Globulin Ratio Amylase 94 Lipase 49 11/03/18 11/04/18 11/04/18 09:35 06:07 06:17 WBC 12.7 H RBC 4.44 Hgb 13.8 Hct 41.5 MCV 93.4 MCH 31.2 H MCHC 33.4 RDW 14.3 Plt Count 199 MPV 8.1 Neut % (Auto) 74.9 Lymph % (Auto) 14.5 L [place] % (Auto) 10.2 H Eos % (Auto) 0.1 Baso % (Auto) 0.3 Neut # (Auto) 9.5 H Lymph # (Auto) 1.8 [place] # (Auto) 1.3 H Eos # (Auto) 0.0 Baso # (Auto) 0.0 Neutrophils % (Manual) Band Neutrophils % Lymphocytes % (Manual) Monocytes % (Manual) Platelet Estimate Large Platelets Anisocytosis (manual) Plt P2Y12 React Units Sodium 138 Potassium 4.6 Chloride 107 Carbon Dioxide 22 Anion Gap 13 BUN 22 H Creatinine 1.6 H Est GFR ( Amer) 54 Est GFR (Non-Af Amer) 45 Random Glucose 105 D Lactic Acid 1.1 Calcium 8.4 L Total Bilirubin 0.8 AST 179 H D ALT 45 Alkaline Phosphatase 50 Troponin I Total Protein 6.3 Albumin 3.6 Globulin 2.7 Albumin/Globulin Ratio 1.3 Amylase Lipase Review of Systems - Review of Systems Review of Systems: per [facility] Critical Care Progress Note - Nutrition Nutrition: Nutrition Category Date Time Status Liquid Diet [DIET] Diets 11/03/18 Breakfast Active Assessment/Plan - Assessment and Plan (Free Text) Assessment: 58 y/o M with PMH CAD s/p stent in 2017, HTN, HLD, PUD, tobacco abuse brought to ICU s/p code heart on 11/02. Pt was transferred from [facility] to , found to have ST elevations in anteroseptal leads, underwent emergent cardiac cath, found to have 100% occlusion of LAD with placement of MONTSERRAT in mid LAD. Plan: Neuro: AxO x 3 [id number] CV: STEMI -s/p CODE HEART, ST elevations in anteroseptal leads, s/p emergent cardiac catheterization 11/02/2018 -successful angioplasty/stenting of 100% thrombosed LAD w/ MONTSERRAT -continue with ASA/Plavix x 1 year per cardiology recs -continue with guideline directed therapy for CAD. Currently on 40mg rosuvastatin, 25mg metoprolol bid -P2Y12: 211. Pt not resistant to plavix therapy HFrEF -found to have LVEF ~40% during cardiac cath -Echocardiogram pending -Not in fluid overload, not requiring diuretics ID: Leukocytosis -2/2 aspiration PNA vs. reactive demargination -CXR revealing bibasilar infiltrates -Pt being covered empirically for aspiration PNA/MRSA -Currently on doxy/zosyn since 11/02 -Per ID, will d/c doxy today, will continue zosyn -Per ID note, will order cultures. -ID following GI: Nausea/Vomiting -Resolved. Likely 2/2 cannibinoid hyperemesis syndrome. Utox (+) for cannibinoids -c/w zofran 4Q6 prn : Pre-renal azotemia in CKD3 -Likely 2/2 hypovolemia -c/w NS IVF@ 50mls/hr GI/DVT PPx: Lovenox/SCD Dispo: Pt is alert, awake, talking, tolerating diet, denying any complaints. His vital signs are stable, he is hemodynamically stable. Pt no longer requires ICU care, pt to be transferred to telemetry. Case reviewed with attending physician, Dr. Caroline Hopper PGY1
[2018-11-04] MEDS: Enoxaparin 40 mg Syringe SC SCH (09:05)
[2018-11-04] MEDS ORDERED: Potassium & Sodium Phosphate PO ONE (10:37)
[2018-11-04] MEDS ORDERED: Perflutren Lipid Microsphere 1.5 ML SUS IV ONE (13:56)
--- NOTE | 2018-11-04 14:49 | CP.PCM.PN ---
Subjective - Date & Time of Evaluation Date of Evaluation: 11/04/18 Time of Evaluation: 14:30 - Subjective Subjective: dictated Objective - Vital Signs/Intake and Output Vital Signs (last 24 hours): Temp Pulse Resp BP Pulse Ox 98.2 F 110 H 12 118/72 95 11/04/18 12:00 11/04/18 13:00 11/04/18 13:00 11/04/18 12:08 11/04/18 12:08 Intake and Output: 11/04/18 11/04/18 06:59 18:59 Intake Total 456 700 Output Total 650 Balance -194 700 - Medications Medications: Current Medications Al Hydrox/Mg Hydrox/Simethicone (Maalox Plus 30 Ml) 30 ml PO Q6H PRN PRN Reason: Indigestion / Heartburn Last Admin: 11/03/18 08:58 Dose: 30 ml Aspirin (Aspirin Chewable) 81 mg PO DAILY REPLACED BY [facility] Last Admin: 11/04/18 09:05 Dose: 81 mg Clopidogrel Bisulfate (Plavix) 75 mg PO DAILY REPLACED BY [facility] Last Admin: 11/04/18 09:05 Dose: 75 mg Enoxaparin Sodium (Lovenox) 40 mg SC DAILY REPLACED BY [facility] Last Admin: 11/04/18 09:05 Dose: 40 mg Piperacillin Sod/Tazobactam (Sod 3.375 gm/ Sodium Chloride) 100 mls @ 200 mls/hr IVPB Q8H REPLACED BY [facility]; Protocol Last Admin: 11/04/18 10:51 Dose: 200 mls/hr Doxycycline Hyclate 100 mg/ (Sodium Chloride) 100 mls @ 100 mls/hr IVPB Q12H REPLACED BY [facility]; Protocol Last Admin: 11/04/18 06:03 Dose: 100 mls/hr Nitroglycerin/Dextrose (Nitroglycerin 50 Mg/250 Ml D5w) 50 mg in 250 mls @ 1.5 mls/hr IV .Q24H REPLACED BY [facility]; Protocol Last Admin: 11/04/18 02:00 Dose: Not Given Metoprolol Tartrate (Lopressor) 25 mg PO BID REPLACED BY [facility] Last Admin: 11/04/18 09:05 Dose: 25 mg Ondansetron HCl (Zofran Inj) 4 mg IVP Q6H PRN PRN Reason: Nausea/Vomiting Last Admin: 11/02/18 22:55 Dose: 4 mg Rosuvastatin Calcium (Crestor) 40 mg PO HS REPLACED BY [facility] Last Admin: 11/03/18 22:09 Dose: 40 mg - Labs Labs: 11/04/18 06:17 11/04/18 06:07
--- NOTE | 2018-11-04 15:07 | CARD ---
APPROVED REPORT Date of service: 11/04/2018 EXAM: Two-dimensional and M-mode echocardiogram with Doppler and color Doppler. Other Information Quality : TDSRhythm : INDICATION Cardiac Disease: CAD Non STEMI Surgery/Intervention ICD/Pacemaker: RISK FACTORS Hypertension Hyperlipidemia 2D DIMENSIONS IVSd0.9 (0.7-1.1cm)LVDd4.6 (3.9-5.9cm) PWd1.1 (0.7-1.1cm)LA Sndorz97 (18-58mL) LVDs3.7 (2.5-4.0cm)FS (%) 19.1 % LVEF (%)39.4 (>50%)LVEF (Abdullahi's)48.32 % M-Mode DIMENSIONS Left Atrium (MM)3.62 (2.5-4.0cm)Aortic Root3.46 (2.2-3.7cm) Aortic Cusp Exc.2.07 (1.5-2.0cm) Mitral Valve MV E Ihwifliv61.7cm/sMV A Yckaatsv66.6cm/sE/A ratio1.1 TDI Lateral E' Peak V7.71cm/sMedial E' Peak V5.96cm/sE/Lateral E'11.0 E/Medial E'14.2 <Conclusion> tds. poor window. lv appears dilated. normal size la,ra & rv. moderately severe lv systolic dysfunciton with lvef of 30-35%. akinesia of anteropical,apical septum & apx.cad. lv diastolic dysfunciton grade 2. aortic,mitral,tv & pv grossly appears normal. mild mr sclerotic normal size aortic root. no pericardial effusion. ischemic cardiomyopathy.
--- NOTE | 2018-11-04 20:33 | CP.PCM.CON ---
History of Present Illness - History of Present Illness History of Present Illness: Curtis Luque, PGY-[address] Mai: CC: Chest pain Cardio Consult: For Code Heart Pt is a 58 y/o M with PMH CAD s/p stent in 2017, HTN, HLD, PUD, tobacco abuse brought to ICU s/p code heart on 11/02. Pt was transferred from [facility] to , found to have ST elevations in anteroseptal leads, underwent emergent cardiac cath, fo und to have 100% occlusion of LAD with placement of MONTSERRAT in mid and prox LAD. Pt was transferred to ICU s/p cath for monitoring. Pt was seen this AM at bedside in the ICU and denies any acute complaints at this time. Pt denies any fevers, chills, headaches, lightheadedness, chest pain, palpitations, SOB, cough, abd pain, n/v, c/d or dysuria. Review of Systems - Review of Systems Review of Systems: 12 point ROS reviewed and negative except for noted in HPI above. Past Patient History - Infectious Disease Hx of Infectious Diseases: None - Tetanus Immunizations Tetanus Immunization: Unknown - Past Medical History & Family History Past Medical History?: Yes - Past Social History Smoking Status: Current Some Days Smoker - CARDIAC Hx Hypercholesterolemia: Yes Hx Hypertension: Yes - PULMONARY Hx Asthma: Yes - NEUROLOGICAL Hx Neurological Disorder: Yes HX Cerebrovascular Accident: Yes - HEENT Hx HEENT Problems: No - RENAL Hx Chronic Kidney Disease: Yes Hx Kidney Stones: Yes - ENDOCRINE/METABOLIC Hx Endocrine Disorders: No - HEMATOLOGICAL/ONCOLOGICAL Hx Blood Disorders: No - INTEGUMENTARY Hx Dermatological Problems: No - MUSCULOSKELETAL/RHEUMATOLOGICAL Hx Arthritis: Yes - GASTROINTESTINAL Hx Gastrointestinal Disorders: Yes Hx Ulcer: Yes - GENITOURINARY/GYNECOLOGICAL Hx Genitourinary Disorders: No - PSYCHIATRIC Hx Anxiety: Yes Hx Depression: Yes - SURGICAL HISTORY Hx Surgeries: Yes Hx Angioplasty: Yes (x2) - ANESTHESIA Hx Anesthesia: Yes Hx Anesthesia Reactions: No Meds Home Medications: Home Medication List Medication Instructions Recorded Confirmed Type Aspirin [Aspirin Chewable] 81 mg PO DAILY chew 11/05/18 Rx Clopidogrel [Plavix] 75 mg PO DAILY tab 11/05/18 Rx Lisinopril/Hydrochlorothiazide 1 each PO DAILY 30 Days tablet 11/05/18 Rx [Lisinopril-Hctz 20-25 mg Tab] Metoprolol Tartrate [Lopressor] 25 mg PO BID tab 11/05/18 Rx Omeprazole 20 mg PO DAILY 30 Days capsule. 11/05/18 Rx Rosuvastatin Calcium [Crestor] 10 mg PO HS tab 11/05/18 Rx Allergies/Adverse Reactions: Allergies Allergy/AdvReac Type Severity Reaction Status Date / Time No Known Allergies Allergy Verified 11/02/18 12:27 - Medications Medications: Current Medications Al Hydrox/Mg Hydrox/Simethicone (Maalox Plus 30 Ml) 30 ml PO Q6H PRN PRN Reason: Indigestion / Heartburn Last Admin: 11/03/18 08:58 Dose: 30 ml Aspirin (Aspirin Chewable) 81 mg PO DAILY [facility] Last Admin: 11/04/18 09:05 Dose: 81 mg Clopidogrel Bisulfate (Plavix) 75 mg PO DAILY [facility] Last Admin: 11/04/18 09:05 Dose: 75 mg Enoxaparin Sodium (Lovenox) 40 mg SC DAILY [facility] Last Admin: 11/04/18 09:05 Dose: 40 mg Piperacillin Sod/Tazobactam (Sod 3.375 gm/ Sodium Chloride) 100 mls @ 200 mls/hr IVPB Q8H [facility]; Protocol Last Admin: 11/04/18 18:05 Dose: 200 mls/hr Nitroglycerin/Dextrose (Nitroglycerin 50 Mg/250 Ml D5w) 50 mg in 250 mls @ 1.5 mls/hr IV .Q24H [facility]; Protocol Last Admin: 11/04/18 02:00 Dose: Not Given Metoprolol Tartrate (Lopressor) 25 mg PO BID [facility] Last Admin: 11/04/18 18:05 Dose: 25 mg Ondansetron HCl (Zofran Inj) 4 mg IVP Q6H PRN PRN Reason: Nausea/Vomiting Last Admin: 11/02/18 22:55 Dose: 4 mg Rosuvastatin Calcium (Crestor) 40 mg PO HS [facility] Last Admin: 11/03/18 22:09 Dose: 40 mg Physical Exam - Constitutional Appears: Non-toxic, No Acute Distress - Head Exam Head Exam: ATRAUMATIC, NORMAL INSPECTION, NORMOCEPHALIC - Eye Exam Eye Exam: EOMI, Normal appearance, PERRL - Respiratory Exam Respiratory Exam: Clear to Auscultation Bilateral, NORMAL BREATHING PATTERN. absent: Rales, Rhonchi, Wheezes - Cardiovascular Exam Cardiovascular Exam: Tachycardia, +S1, +S2. absent: Gallop, Rubs - GI/Abdominal Exam GI & Abdominal Exam: Guarding, Normal Bowel Sounds, Soft. absent: Distended, Firm Additional comments: Dressing noted over R groin, no hematoma noted. - Extremities Exam Extremities exam: Positive for: normal capillary refill, pedal pulses present. Negative for: calf tenderness - Neurological Exam Neurological exam: Alert, Oriented x3 - Psychiatric Exam Psychiatric exam: Normal Affect, Normal Mood - Skin Skin Exam: Dry, Normal Color, Warm Results - Vital Signs Recent Vital Signs: Last Vital Signs Temp 98.2 F 11/04/18 20:00 Pulse 87 11/04/18 20:00 Resp 16 11/04/18 20:00 BP 132/90 11/04/18 19:35 Pulse Ox 96 11/04/18 20:00 - Labs Result Diagrams: 11/05/18 05:51 11/05/18 05:51 Labs: Laboratory Results - last 24 hr 11/04/18 11/04/18 11/04/18 06:07 06:17 16:38 WBC 12.7 H RBC 4.44 Hgb 13.8 Hct 41.5 MCV 93.4 MCH 31.2 H MCHC 33.4 RDW 14.3 Plt Count 199 MPV 8.1 Neut % (Auto) 74.9 Lymph % (Auto) 14.5 L Tyrrell % (Auto) 10.2 H Eos % (Auto) 0.1 Baso % (Auto) 0.3 Neut # (Auto) 9.5 H Lymph # (Auto) 1.8 Tyrrell # (Auto) 1.3 H Eos # (Auto) 0.0 Baso # (Auto) 0.0 Sodium 138 Potassium 4.6 Chloride 107 Carbon Dioxide 22 Anion Gap 13 BUN 22 H Creatinine 1.6 H Est GFR ( Amer) 54 Est GFR (Non-Af Amer) 45 Random Glucose 105 D Calcium 8.4 L Phosphorus 1.8 L Magnesium 1.9 Total Bilirubin 0.8 AST 179 H D ALT 45 Alkaline Phosphatase 50 Troponin I 20.4000 H* Total Protein 6.3 Albumin 3.6 Globulin 2.7 Albumin/Globulin Ratio 1.3 Assessment & Plan - Assessment and Plan (Free Text) Plan: STEMI s/p CODE HEART s/p 2 MONTSERRAT in LAD - ST elevations in anteroseptal leads, s/p emergent cardiac catheterization 11/02/2018 - Successful angioplasty/stenting of 100% thrombosed LAD w/ MONTSERRAT - Continue with ASA/Plavix x 1 year per cardiology recs - Continue with guideline directed therapy for CAD. Currently on 40mg rosuvastatin, 25mg metoprolol bid - P2Y12: 211. Pt not resistant to plavix therapy - Pt will be started on low dose ARB. HFrEF -found to have LVEF ~40% during cardiac cath -Echocardiogram - LVEF 30-35% -Pt will be started on low dose aldactone. -Not in fluid overload, not requiring diuretics
--- NOTE | 2018-11-04 20:58 | CP.PCM.PN ---
Subjective - Date & Time of Evaluation Date of Evaluation: 11/04/18 - Subjective Subjective: patient examined today no nausea no vomiting no dizziness no diarrhea no fever no shortness of breath Objective - Vital Signs/Intake and Output Vital Signs (last 24 hours): Temp Pulse Resp BP Pulse Ox 98.2 F 87 16 132/90 96 11/04/18 20:00 11/04/18 20:00 11/04/18 20:00 11/04/18 19:35 11/04/18 20:00 Intake and Output: 11/04/18 11/05/18 18:59 06:59 Intake Total 1050 Balance 1050 - Medications Medications: Current Medications Al Hydrox/Mg Hydrox/Simethicone (Maalox Plus 30 Ml) 30 ml PO Q6H PRN PRN Reason: Indigestion / Heartburn Last Admin: 11/03/18 08:58 Dose: 30 ml Aspirin (Aspirin Chewable) 81 mg PO DAILY [facility] Last Admin: 11/04/18 09:05 Dose: 81 mg Clopidogrel Bisulfate (Plavix) 75 mg PO DAILY [facility] Last Admin: 11/04/18 09:05 Dose: 75 mg Enoxaparin Sodium (Lovenox) 40 mg SC DAILY [facility] Last Admin: 11/04/18 09:05 Dose: 40 mg Piperacillin Sod/Tazobactam (Sod 3.375 gm/ Sodium Chloride) 100 mls @ 200 mls/hr IVPB Q8H [facility]; Protocol Last Admin: 11/04/18 18:05 Dose: 200 mls/hr Nitroglycerin/Dextrose (Nitroglycerin 50 Mg/250 Ml D5w) 50 mg in 250 mls @ 1.5 mls/hr IV .Q24H [facility]; Protocol Last Admin: 11/04/18 02:00 Dose: Not Given Metoprolol Tartrate (Lopressor) 25 mg PO BID [facility] Last Admin: 11/04/18 18:05 Dose: 25 mg Ondansetron HCl (Zofran Inj) 4 mg IVP Q6H PRN PRN Reason: Nausea/Vomiting Last Admin: 11/02/18 22:55 Dose: 4 mg Rosuvastatin Calcium (Crestor) 40 mg PO [facility] Last Admin: 11/03/18 22:09 Dose: 40 mg - Labs Labs: 11/04/18 06:17 05/20/19 06:07 - Constitutional Appears: Well - Head Exam Head Exam: ATRAUMATIC, NORMAL INSPECTION, NORMOCEPHALIC - Eye Exam Eye Exam: EOMI, Normal appearance, PERRL Pupil Exam: NORMAL ACCOMODATION, PERRL - ENT Exam ENT Exam: Mucous Membranes Moist, Normal Exam - Neck Exam Neck Exam: Full ROM, Normal Inspection. absent: Lymphadenopathy - Respiratory Exam Respiratory Exam: Decreased Breath Sounds - Cardiovascular Exam Cardiovascular Exam: REGULAR RHYTHM, +S1, +S2 - GI/Abdominal Exam GI & Abdominal Exam: Soft, Diminished Bowel Sounds - Rectal Exam Rectal Exam: Deferred - Neurological Exam Neurological Exam: Oriented x3 Assessment and Plan (1) Chest pain Status: Acute (2) Coronary artery disease Status: Acute (3) Gastritis Status: Acute (4) Hyperlipidemia Status: Acute (5) Hypertension Status: Acute (6) NSTEMI (non-ST elevated myocardial infarction) Status: Acute (7) STEMI (ST elevation myocardial infarction) Status: Acute - Assessment and Plan (Free Text) Plan: plan discussed with patient moderate complexity of care acetylcysteine MiraLAX Aspirin Plavix Lovenox Piperacillin Doxycycline Nitroglycerin Lopressor Zofran Crestor medication reviewed vitals reviewed no labs reviewed
--- NOTE | 2018-11-04 22:35 | PN ---
DATE: 11/04/2018 INFECTIOUS DISEASE FOLLOWUP NOTE SUBJECTIVE: The patient says he is feeling better. He denies any chest pain. He wants to go home. He says his white count was normal now and they said there is no infection. Some days he smokes, but he says that he has stopped smoking since this cardiac issue has come up. He also denied taking any marijuana. He said he has not done it for a year and he said it also came out [facility] and they said that it can stay in the system for a year, which I do not think so. He says he is depressed. It does calm him down, so I am not sure what he wants to tell me whether he takes it or not, but it was in the urine. PHYSICAL EXAMINATION: VITAL SIGNS: T-max is 98.3, heart rate of 91, blood pressure 118/79 and oxygen saturation is 98%. HEENT: Head is atraumatic and normocephalic. NECK: Supple. LUNGS: Clear. No crackles or rales present. HEART: S1 and S2, is regular. ABDOMEN: Soft and nontender. No guarding. No rigidity present. EXTREMITIES: No edema, clubbing or cyanosis. LABORATORY DATA: Labs are noted. White count is 12.7, hemoglobin 13.8, hematocrit 41.5, and platelet count is 199. His BUN is 22 and creatinine is 1.6. Troponin still remains positive, but is better than before where he did have a stent placement for SD and the white count was elevated. He has some atelectasis versus infiltrate as mentioned. ASSESSMENT AND PLAN: At this time, we will continue with Zosyn as he did have some vomiting before he came and probably if the white count remains stable, we can probably discontinue it. I doubt he has active pneumonia. We will follow as needed. Shaniqua Isaacs MD
[2018-11-05] MEDS: Nitroglycerin 50mg in D5W 50 MG/250 ML BOTTLE IV SCH (02:11)
[2018-11-05] MEDS: Piperacillin/Tazobact 3.375 GM in Sodium Chloride 100 ML IVPB SCH (03:48)
[2018-11-05 05:56] LABS: BASO # 0.1 K/uL (0.0-0.2); BASO % 0.6 % (0.0-2.0); EOS % 0.3 % (0.0-4.0); HEMOGLOBIN 13.8 g/dL (12.0-18.0); LYMPH # 2.1 K/uL (1.0-4.3); MEAN CELL VOLUME 92.1 fL (80.0-94.0); MEAN CORPUSCULAR HGB CONC 34.7 g/dL (33.0-37.0); MEAN PLATELET VOLUME 8.4 fL (7.2-11.7); MONO # 1.1 K/uL (0.0-0.8); MONO % 10.6 % (0.0-10.0); NEUT # 7.1 K/uL (1.8-7.0); NEUT % 68.5 % (50.0-75.0); NRBC % 0.1 % (0.0-2.0); RBC 4.31 Mil/uL (4.40-5.90); RED CELL DISTRIBUTION WIDTH 14.2 % (11.5-14.5); WHITE BLOOD COUNT 10.4 K/uL (4.8-10.8)
[2018-11-05 06:32] LABS: ALB/GLOB RATIO 1.3 (1.0-2.1); ALBUMIN 3.6 g/dL (3.5-5.0); ALT/SGPT 36 U/L (21-72); AST/SGOT 95 U/L (17-59); BLOOD UREA NITROGEN 22 mg/dL (9-20); CALCIUM 8.6 mg/dl (8.6-10.4); GFR NON-AFRICAN AMERICAN 52
[2018-11-05] MEDS: Enoxaparin 40 mg Syringe SC SCH (09:06)
--- NOTE | 2018-11-05 09:20 | CP.PCM.PN ---
Subjective - Date & Time of Evaluation Date of Evaluation: 11/05/18 Time of Evaluation: 08:00 - Subjective Subjective: Curtis Luque, PGY-[address] Mai: Pt was seen and examined this AM at bedside. Pt denies having any acute complaints at this time. Pt had no acute overnight events. Objective - Vital Signs/Intake and Output Vital Signs (last 24 hours): Temp Pulse Resp BP Pulse Ox 97.9 F 84 14 121/76 99 11/05/18 08:00 11/05/18 08:00 11/05/18 08:00 11/05/18 09:05 11/05/18 08:00 Intake and Output: 11/05/18 11/05/18 06:59 18:59 Intake Total 370 0 Output Total 400 250 Balance -30 -250 - Medications Medications: Current Medications Al Hydrox/Mg Hydrox/Simethicone (Maalox Plus 30 Ml) 30 ml PO Q6H PRN PRN Reason: Indigestion / Heartburn Last Admin: 11/03/18 08:58 Dose: 30 ml Aspirin (Aspirin Chewable) 81 mg PO DAILY [facility] Last Admin: 11/05/18 09:05 Dose: 81 mg Clopidogrel Bisulfate (Plavix) 75 mg PO DAILY [facility] Last Admin: 11/05/18 09:05 Dose: 75 mg Enoxaparin Sodium (Lovenox) 40 mg SC DAILY [facility] Last Admin: 11/05/18 09:06 Dose: 40 mg Piperacillin Sod/Tazobactam (Sod 3.375 gm/ Sodium Chloride) 100 mls @ 200 mls/hr IVPB Q8H [facility]; Protocol Last Admin: 11/05/18 03:48 Dose: 200 mls/hr Nitroglycerin/Dextrose (Nitroglycerin 50 Mg/250 Ml D5w) 50 mg in 250 mls @ 1.5 mls/hr IV .Q24H [facility]; Protocol Last Admin: 11/05/18 02:11 Dose: Not Given Metoprolol Tartrate (Lopressor) 25 mg PO BID [facility] Last Admin: 11/05/18 09:05 Dose: 25 mg Ondansetron HCl (Zofran Inj) 4 mg IVP Q6H PRN PRN Reason: Nausea/Vomiting Last Admin: 11/02/18 22:55 Dose: 4 mg Rosuvastatin Calcium (Crestor) 40 mg PO HS [facility] Last Admin: 11/04/18 21:37 Dose: 40 mg - Labs Labs: 11/05/18 05:51 11/05/18 05:51 - Constitutional Appears: Non-toxic, No Acute Distress - Head Exam Head Exam: ATRAUMATIC, NORMAL INSPECTION, NORMOCEPHALIC - Eye Exam Eye Exam: EOMI, Normal appearance, PERRL - Respiratory Exam Respiratory Exam: Clear to Auscultation Bilateral, NORMAL BREATHING PATTERN. absent: Rales, Rhonchi, Wheezes - Cardiovascular Exam Cardiovascular Exam: Tachycardia, +S1, +S2. absent: Gallop, Rubs - GI/Abdominal Exam GI & Abdominal Exam: Guarding, Normal Bowel Sounds, Soft. absent: Distended, Firm Additional comments: Dressing noted over R groin, no hematoma noted. - Extremities Exam Extremities exam: Positive for: normal capillary refill, pedal pulses present. Negative for: calf tenderness - Neurological Exam Neurological exam: Alert, Oriented x3 - Psychiatric Exam Psychiatric exam: Normal Affect, Normal Mood - Skin Skin Exam: Dry, Normal Color, Warm Assessment & Plan - Assessment and Plan (Free Text) Plan: STEMI s/p CODE HEART s/p 2 MONTSERRAT in LAD - ST elevations in anteroseptal leads, s/p emergent cardiac catheterization 11/02/2018 - Successful angioplasty/stenting of 100% thrombosed LAD w/ MONTSERRAT - Continue with ASA/Plavix x 1 year per cardiology recs - Continue with guideline directed therapy for CAD. Currently on 40mg rosuvastatin, 25mg metoprolol bid - P2Y12: 211. Pt not resistant to plavix therapy - Pt will be started on low dose ARB. HFrEF -found to have LVEF ~40% during cardiac cath -Echocardiogram - LVEF 30-35% -Pt will be started on low dose aldactone. -Not in fluid overload, not requiring diuretics
--- NOTE | 2018-11-05 12:06 | CP.PCM.PN ---
Subjective - Date & Time of Evaluation Date of Evaluation: 11/05/18 Time of Evaluation: 12:06 - Subjective Subjective: alert and orientedx3, ambulatory, no sob or chest pains, NAD. Objective - Vital Signs/Intake and Output Vital Signs (last 24 hours): Temp Pulse Resp BP Pulse Ox 97.9 F 84 14 121/76 99 11/05/18 08:00 11/05/18 08:00 11/05/18 08:00 11/05/18 09:05 11/05/18 08:00 Intake and Output: 11/05/18 11/05/18 06:59 18:59 Intake Total 370 0 Output Total 400 250 Balance -30 -250 - Medications Medications: Current Medications Al Hydrox/Mg Hydrox/Simethicone (Maalox Plus 30 Ml) 30 ml PO Q6H PRN PRN Reason: Indigestion / Heartburn Last Admin: 11/03/18 08:58 Dose: 30 ml Aspirin (Aspirin Chewable) 81 mg PO DAILY [facility] Last Admin: 11/05/18 09:05 Dose: 81 mg Clopidogrel Bisulfate (Plavix) 75 mg PO DAILY [facility] Last Admin: 11/05/18 09:05 Dose: 75 mg Enoxaparin Sodium (Lovenox) 40 mg SC DAILY [facility] Last Admin: 11/05/18 09:06 Dose: 40 mg Piperacillin Sod/Tazobactam (Sod 3.375 gm/ Sodium Chloride) 100 mls @ 200 mls/hr IVPB Q8H [facility]; Protocol Last Admin: 11/05/18 03:48 Dose: 200 mls/hr Nitroglycerin/Dextrose (Nitroglycerin 50 Mg/250 Ml D5w) 50 mg in 250 mls @ 1.5 mls/hr IV .Q24H [facility]; Protocol Last Admin: 11/05/18 02:11 Dose: Not Given Metoprolol Tartrate (Lopressor) 25 mg PO BID [facility] Last Admin: 11/05/18 09:05 Dose: 25 mg Ondansetron HCl (Zofran Inj) 4 mg IVP Q6H PRN PRN Reason: Nausea/Vomiting Last Admin: 11/02/18 22:55 Dose: 4 mg Rosuvastatin Calcium (Crestor) 40 mg PO HS [facility] Last Admin: 11/04/18 21:37 Dose: 40 mg - Labs Labs: 11/05/18 05:51 11/05/18 05:51 Assessment and Plan - Assessment and Plan (Free Text) Assessment: 58 year old male s/p successful angioplasty/stent, seen and examined. Alert and orientedx3, denies sob or chest pains, cleared by cardiology for discharge. Discussed with DR Scott Lancaster, plan to discharge home today. Advised to continue with present medications including asa, plavix, metoprolol, statin and lisinopril. 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
[2018-11-05 15:02] VITALS: BP 125/73; PULSE 82; RESP 13; TEMP 98; O2SAT 97
--- NOTE | 2018-11-05 19:09 | CP.PCM.DIS ---
Provider - Provider Date of Admission: 11/02/18 15:42 Attending physician: Bisi Lancaster MD Consults: 11/02/18 18:50 Infectious Disease Consult Routine Comment: Consulting Provider: Shaniqua Isaacs Consulting Physician: Shaniqua Isaacs Reason for Consult: aspiratoin PNA, with renal failure, linezolid + doxy + zosyn 11/04/18 16:38 Cardiology Consult Routine Comment: Consulting Provider: Ramirez Mai Consulting Physician: Ramirez Mai Reason for Consult: Code Heart Diagnosis - Discharge Diagnosis (1) Chest pain Status: Acute (2) Coronary artery disease Status: Acute (3) Gastritis Status: Acute (4) Hyperlipidemia Status: Acute (5) Hypertension Status: Acute (6) NSTEMI (non-ST elevated myocardial infarction) Status: Acute Priority: High Onset Date: 07/07/16 (7) STEMI (ST elevation myocardial infarction) Status: Acute Hospital Course - Lab Results Lab Results: Micro Results 11/02/18 18:41 Nose MRSA Culture (Admit) - Final MRSA NOT DETECTED Most Recent Lab Values WBC 10.4 K/uL (4.8-10.8) 11/05/18 05:51 RBC 4.31 Mil/uL (4.40-5.90) L 11/05/18 05:51 Hgb 13.8 g/dL (12.0-18.0) 11/05/18 05:51 Hct 39.7 % (35.0-51.0) 11/05/18 05:51 MCV 92.1 fL (80.0-94.0) 11/05/18 05:51 MCH 32.0 pg (27.0-31.0) H 11/05/18 05:51 MCHC 34.7 g/dL (33.0-37.0) 11/05/18 05:51 RDW 14.2 % (11.5-14.5) 11/05/18 05:51 Plt Count 189 K/uL (130-400) 11/05/18 05:51 MPV 8.4 fL (7.2-11.7) 11/05/18 05:51 Neut % (Auto) 68.5 % (50.0-75.0) 11/05/18 05:51 Lymph % (Auto) 20.0 % (20.0-40.0) 11/05/18 05:51 Bullock % (Auto) 10.6 % (0.0-10.0) H 11/05/18 05:51 Eos % (Auto) 0.3 % (0.0-4.0) 11/05/18 05:51 Baso % (Auto) 0.6 % (0.0-2.0) 11/05/18 05:51 Neut # (Auto) 7.1 K/uL (1.8-7.0) H 11/05/18 05:51 Lymph # (Auto) 2.1 K/uL (1.0-4.3) 11/05/18 05:51 Bullock # (Auto) 1.1 K/uL (0.0-0.8) H 11/05/18 05:51 Eos # (Auto) 0.0 K/uL (0.0-0.7) 11/05/18 05:51 Baso # (Auto) 0.1 K/uL (0.0-0.2) 11/05/18 05:51 Neutrophils % (Manual) 87 % (50-75) H 11/03/18 06:10 Band Neutrophils % 1 % (0-2) 11/03/18 06:10 Lymphocytes % (Manual) 6 % (20-40) L 11/03/18 06:10 Monocytes % (Manual) 6 % (0-10) 11/03/18 06:10 Toxic Granulation Present 11/02/18 16:01 Platelet Estimate Normal (NORMAL) 11/03/18 06:10 Large Platelets Present 11/03/18 06:10 Anisocytosis (manual) Slight 11/03/18 06:10 Plt [id number] React Units 211 PRU (194-418) 11/03/18 08:35 Puncture Site Rradial 11/02/18 17:50 pCO2 35 mm/Hg (35-45) 11/02/18 17:50 pO2 80 mm/Hg (80-100) 11/02/18 17:50 HCO3 20.1 mmol/L (21-28) L 11/02/18 17:50 ABG pH 7.34 (7.35-7.45) L 11/02/18 17:50 ABG Total CO2 20.0 mmol/L (22-28) L 11/02/18 17:50 ABG O2 Saturation 96.7 % (95-98) 11/02/18 17:50 ABG Base Excess -6.1 mmol/L (-2.0-3.0) L 11/02/18 17:50 Herman Test Pos 11/02/18 17:50 ABG Potassium 4.4 mmol/L (3.6-5.2) 11/02/18 17:50 A-a O2 Difference 76.0 mm/Hg 11/02/18 17:50 Respiratory Index 1.0 11/02/18 17:50 Sodium 136.0 mmol/l (132-148) 11/02/18 17:50 Chloride 106.0 mmol/L (98-107) 11/02/18 17:50 Glucose 159 mg/dl (75-110) H 11/02/18 17:50 Lactate 1.5 mmol/L (0.7-2.1) 11/02/18 17:50 Liter Flow 2.0 11/02/18 17:50 FiO2 28.0 % 11/02/18 17:50 Sodium 138 mmol/L (132-148) 11/05/18 05:51 Potassium 4.2 mmol/L (3.6-5.2) 11/05/18 05:51 Chloride 106 mmol/L (98-107) 11/05/18 05:51 Carbon Dioxide 21 mmol/L (22-30) L 11/05/18 05:51 Anion Gap 15 (10-20) 11/05/18 05:51 BUN 22 mg/dL (9-20) H 11/05/18 05:51 Creatinine 1.4 mg/dL (0.8-1.5) 11/05/18 05:51 Est GFR ( Amer) > 60 11/05/18 05:51 Est GFR (Non-Af Amer) 52 11/05/18 05:51 Random Glucose 98 mg/dL (75-110) 11/05/18 05:51 Lactic Acid 1.1 mmol/L (0.7-2.1) 11/03/18 09:35 Calcium 8.6 mg/dl (8.6-10.4) 11/05/18 05:51 Phosphorus 2.7 mg/dL (2.5-4.5) 11/05/18 05:51 Magnesium 1.7 mg/dL (1.6-2.3) 11/05/18 05:51 Total Bilirubin 0.7 mg/dL (0.2-1.3) 11/05/18 05:51 AST 95 U/L (17-59) H D 11/05/18 05:51 ALT 36 U/L (21-72) 11/05/18 05:51 Alkaline Phosphatase 48 U/L (38-126) 11/05/18 05:51 Troponin I 20.4000 ng/mL (0.00-0.120) H* 11/04/18 16:38 Total Protein 6.3 g/dL (6.3-8.3) 11/05/18 05:51 Albumin 3.6 g/dL (3.5-5.0) 11/05/18 05:51 Globulin 2.7 gm/dL (2.2-3.9) 11/05/18 05:51 Albumin/Globulin Ratio 1.3 (1.0-2.1) 11/05/18 05:51 Amylase 94 U/L (30-110) 11/03/18 06:10 Lipase 49 U/L (23-300) 11/03/18 06:10 Arterial Blood Potassium 4.4 mmol/L (3.6-5.2) 11/02/18 17:50 Urine Opiates Screen Positive (NEGATIVE) H 11/02/18 18:41 Ur Opiates (GC/MS) Positive 300 (Negative) H 11/02/18 18:41 Urine Methadone Screen Negative (NEGATIVE) 11/02/18 18:41 Ur Methadone, Qual Negative 300 (Negative) 11/02/18 18:41 Urine Propoxyphene Negative 300 (Negative) 11/02/18 18:41 Methaqualone Negative 300 (Negative) 11/02/18 18:41 Ur Barbiturates Screen Negative (NEGATIVE) 11/02/18 18:41 Ur Barbiturates, Qual Negative 300 (Negative) 11/02/18 18:41 Ur Phencyclidine Scrn Negative (NEGATIVE) 11/02/18 18:41 Ur Phencyclidine (PCP) Negative 25 (Negative) 11/02/18 18:41 Ur Amphetamines Screen Negative 1000 (Negative) 11/02/18 18:41 U Benzodiazepines Scrn Positive (NEGATIVE) 11/02/18 18:41 U Benzodiazepines Qual Positive 300 (Negative) H 11/02/18 18:41 Urine Cocaine Negative 300 (Negative) 18 18:41 U Oth Cocaine Metabols Negative (NEGATIVE) 18 18:41 U Cannabinoids Screen Positive (NEGATIVE) H 18 18:41 U Marijuana (THC) Screen Positive 50 (Negative) H 11/02/18 18:41 Drugs of Abuse Note See note 11/02/18 18:41 Discharge Exam - Head Exam Head Exam: ATRAUMATIC, NORMAL INSPECTION, NORMOCEPHALIC Discharge Plan - Discharge Medications Prescriptions: Lisinopril/Hydrochlorothiazide [Lisinopril-Hctz 20-25 mg Tab] 1 each PO DAILY 30 Days tablet Omeprazole 20 mg PO DAILY 30 Days capsule. - Follow Up Plan Condition: GOOD Disposition: HOME/ ROUTINE Instructions: Heart Healthy Diet, Heart Attack (DC), Coronary Stenting (DC), Chest Pain (DC), Medicines After a Heart Attack, Going Home on Blood Thinners , Aspirin to Prevent Heart Attacks, Cancer, and , Hypertension (DC) Additional Instructions: Please follow up with your Primary care doctor within 1 week Please follow up with your Psychiatric Assistant, Dr. Mai within 1 week Please take Aspirin 81mg & Plavix 75mg for 1 year Please continue taking the following medications: Metoprolol tartarate 25mg twice a day Rosuvastatin 40mg every night Lisinopril/Spironolactone 20-25mg tablet every day
--- NOTE | 2018-11-07 00:13 | CARD ---
APPROVED REPORT Date of service: 11/02/2018 EKG Measurement Heart [id number] <Conclusion> Normal sinus rhythm Left axis deviation Low voltage QRS Anteroseptal infarct, possibly acute Abnormal ECG
== END 2018-11-05 14:00 | disposition home or self-care (01) | DRG 246 ==
LOC: C.CATHLAB 13:51 → C.9I 15:42
PROVIDERS: ADMIT Internal Medicine Nephrology; ATTEND Internal Medicine Nephrology
PROC: 027034Z Dilation of Coronary Artery, One Artery with Drug-eluting Intraluminal Device, Percutaneous Approach (ICD-10-PCS; principal; 2018-11-02)
PROC: 4A023N7 Measurement of Cardiac Sampling and Pressure, Left Heart, Percutaneous Approach (ICD-10-PCS; 2018-11-02)
PROC: B2111ZZ Fluoroscopy of Multiple Coronary Arteries using Low Osmolar Contrast (ICD-10-PCS; 2018-11-02)
DX: T82.867A Thrombosis due to cardiac prosthetic devices, implants and grafts, initial encounter (principal); I21.02 ST elevation (STEMI) myocardial infarction involving left anterior descending coronary artery; I25.10 Atherosclerotic heart disease of native coronary artery without angina pectoris; F32.9 Major depressive disorder, single episode, unspecified; I12.9 Hypertensive chronic kidney disease with stage 1 through stage 4 chronic kidney disease, or unspecified chronic kidney disease; N18.2 Chronic kidney disease, stage 2 (mild); Z79.02 Long term (current) use of antithrombotics/antiplatelets; K29.70 Gastritis, unspecified, without bleeding; F17.200 Nicotine dependence, unspecified, uncomplicated; E78.5 Hyperlipidemia, unspecified; D72.829 Elevated white blood cell count, unspecified; F11.10 Opioid abuse, uncomplicated; F12.10 Cannabis abuse, uncomplicated